=== PATIENT | male | born 1965 | race Hispanic/Latino ===

== ENCOUNTER 2023-02-26 19:10 | Inpatient (IN) | payer OTHER ==
[2023-02-26 19:53] LABS: Absolute Lymphocytes (CBC) 1.4 K/uL (0.7-4.9); Hematocrit 45.5 % (39.6-49.0); Lymphocytes % 8.2 % (15.3-44.8); MCV 86.2 fL (80-100); MPV 9.2 fL (7.6-11.3); Platelets 189 thou/uL (152-406); RBC Red Blood Cell Count 5.28 M/uL (4.33-5.43)
[2023-02-26 20:16] LABS: Albumin 3.8 g/dL (3.4-5.0); Bilirubin Direct 0.3 mg/dL (0-0.2); Bilirubin Indirect, Calculated 1.2 mg/dL (0.2-0.8); Bilirubin Total 1.5 mg/dL (0.2-1.0); Magnesium 1.7 mg/dL (1.6-2.4); Potassium 3.8 mEq/L (3.5-5.1); Troponin High Sensitivity 31.8 pg/mL (<58.9)
[2023-02-26 20:18] LABS: Protime INR 1.25
[2023-02-26] MEDS ORDERED: NA CHLORIDE 0.9% 100 ML ONE (20:47)
[2023-02-26] MEDS ORDERED: CEFEPIME 1 GM/VIAL ONE (20:47)
--- NOTE | 2023-02-26 20:59 | RAD REPORT ---
EXAM DESCRIPTION: RADChest Single View02/26/2023 7:56 pm CLINICAL HISTORY: DYSPNEA COMPARISON: Chest Single View dated 01/22/2023; Chest Single View dated 08/21/2022 TECHNIQUE: Portable AP view of the chest. FINDINGS: The lungs are clear. Improving central interstitial prominence. No pneumothorax or effusi on. Stable cardiomegaly. Mediastinal contours are unchanged, with sequelae of prior CABG again seen. IMPRESSION: No acute pulmonary process. Improving central interstitial prominence. Stable cardiomeg cipriano.
--- NOTE | 2023-02-26 21:27 | P.HP ---
Certification for Inpatient Patient admitted to: Inpatient With expected LOS: <2 Midnights Patient will require the following post-hospital care: None Practitioner: I am a practitioner with admitting privileges, knowledge of patient current condition, hospital course, and medical plan of care. Services: Services provided to patient in accordance with Admission requirements found in Title 42 Section 412.3 of the Code of Federal Regulations Patient History Date of Service: 02/27/23 Reason for admission: Shortness of breath History of Present Illness: 57-year-old male with a past medical history of hypertension, myocardial infarction, CAD with PCI, medication noncompliance. Presents to the emergency room with shortness of breath. He reports shortness of breath began this morning. He reports shortness of breath is worse with exertion. His shortness of breath is worse when lying flat. He reports palpitations. He denies abdominal pain, chest pain, nausea vomiting diarrhea. He reports COVID 3 weeks ago. He reports cardiac medications he took for 3 weeks and stopped. He denies following up with cardiology or primary care for medications refill. Laboratory evaluation leukocytosis 17.50, early left shift 83.7, acute on chronic kidney injury BUN 19 creatinine 1.42 estimated GFR 58 blood glucose 189 lactic normal at 1.9 elevated alk phos 155, troponin normal at 31.8, BNP elevated at 5325, chest x-ray IMPRESSION: No acute pulmonary process. Improving central interstitial prominence. Stable cardiomegaly. EKG sinus tachycardia heart rate 127, QRS axis normal, IA interval normal, QT interval normal. No ST change. SARS, COVID, flu negative. Allergies No Known Allergies Allergy (Unverified 08/21/22 15:57) Home Medications: Aspirin Chewable [Aspirin Chewable*] 1 tab PO DAILY 01/23/23 Carvedilol [Coreg] 12.5 mg PO BID 01/23/23 Clopidogrel Bisulfate [Plavix*] 1 tab PO DAILY 01/23/23 Tamsulosin [Flomax*] 0.4 mg PO DAILY 01/23/23 lisinopriL [Lisinopril] 20 mg PO DAILY 01/23/23 Furosemide 20 mg PO DAILY #10 tab 01/25/23 levoFLOXacin [Levofloxacin] 750 mg PO DAILY 12 Days #12 tab 01/25/23 - Past Medical/Surgical History -: HI -: HTN -: CAD -: Cardiac Stent placement - Social History Smoking Status: Never smoker Alcohol use: Yes CD- Drugs: No Caffeine use: Yes Review of Systems 10-point ROS is otherwise unremarkable Physical Examination - Physical Exam General: Alert, In no apparent distress, Oriented x3, Mild distress HEENT: Atraumatic, Normocephalic Neck: Supple, 2+ carotid pulse no bruit Respiratory: Crackles/rales, Other (Tachypnea on BiPAP,) Cardiovascular: No edema, Normal pulses Capillary refill: <2 Seconds Gastrointestinal: Normal bowel sounds, Soft and benign Musculoskeletal: No clubbing, No swelling Integumentary: No rashes, No breakdown Neurological: Normal speech, Normal strength at 5/5 x4 extr - Studies Laboratory Data (last 24 hrs) 02/26/23 02/26/23 02/26/23 19:57 19:40 19:40 WBC RBC Hgb Hct MCV MCH MCHC RDW Plt Count MPV Neutrophils % Lymphocytes % Monocytes % Eosinophils % Basophils % Absolute Neutrophils Absolute Lymphocytes Absolute Monocytes Absolute Eosinophils Absolute Basophils PT 13.8 H INR 1.25 APTT 33.2 D-Dimer Cancelled Sodium Potassium Chloride Carbon Dioxide Anion Gap BUN Creatinine Est GFR (CKD-EPI) Glucose POC Glucose 175 H Lactic Acid 1.9 Calcium Magnesium Total Bilirubin Direct Bilirubin Indirect Bilirubin AST ALT Alkaline Phosphatase Creatine Kinase Troponin I High Sens NT-Pro-B Natriuret Pep Serum Total Protein Albumin Globulin Albumin/Globulin Ratio SARS-CoV-2 Rap RNA(RT-PCR) 02/26/23 02/26/23 02/26/23 19:40 19:40 19:02 WBC 17.50 H RBC 5.28 Hgb 14.9 Hct 45.5 MCV 86.2 MCH 28.3 MCHC 32.9 RDW 16.4 H Plt Count 189 MPV 9.2 Neutrophils % 83.7 H Lymphocytes % 8.2 L Monocytes % 6.7 Eosinophils % 0.8 Basophils % 0.6 Absolute Neutrophils 14.7 H Absolute Lymphocytes 1.4 Absolute Monocytes 1.2 Absolute Eosinophils 0.1 Absolute Basophils 0.1 PT INR APTT D-Dimer Sodium 137 Potassium 3.8 Chloride 108 H Carbon Dioxide 22 Anion Gap 10.8 BUN 19 H Creatinine 1.42 H Est GFR (CKD-EPI) 58 L Glucose 189 H POC Glucose Lactic Acid Calcium 8.7 Magnesium 1.7 Total Bilirubin 1.5 H Direct Bilirubin 0.3 H Indirect Bilirubin 1.2 H AST 13 L ALT 22 Alkaline Phosphatase 155 H Creatine Kinase 66 Troponin I High Sens 31.8 NT-Pro-B Natriuret Pep 5325 H Serum Total Protein 8.0 Albumin 3.8 Globulin 4.2 H Albumin/Globulin Ratio 0.9 L SARS-CoV-2 Rap RNA(RT-PCR) Negative Microbiology Data (last 24 hrs): 02/26/23 19:02 Nasopharnyx Influenza Type A Antigen Screen - Final 02/26/23 19:02 Nasopharnyx Influenza Type B Antigen Screen - Final Assessment and Plan - Plan Assessment plan Acute on chronic heart failure unknown baseline Acute hypoxic respiratory failure secondary to decompensated heart failure Medication noncompliance History of HI, CAD with PCI Elevated BNP Acute on chronic kidney injury unknown baseline Leukocytosis Uncontrolled hypertension Tobacco use Assessment plan acute on chronic heart failure unknown baseline Acute hypoxic respiratory failure secondary to decompensated heart failure History of HI, CAD with PCI Elevated BNP Medication noncompliance Uncontrolled hypertension BiPAP Cardiology consult, trend troponins, trend BNP, Lasix, troponin normal at 31.8, BNP elevated at 5325, EKG sinus tachycardia heart rate 127, QRS axis normal, IA interval normal, QT interval normal. No ST change. SARS, COVID, flu negative. Acute on chronic kidney injury unknown baseline Trend kidney function, avoid nephrotoxic medications .acute on chronic kidney injury BUN 19 creatinine 1.42 estimated GFR 58 Leukocytosis leukocytosis 17.50, early left shift 83.7, actic normal at 1.9 Diet n.p.o Full code DVT heparin. Discharge Plan: Home Plan to discharge in: 48 Hours - Advance Directives Does patient have a Living Will: No Does patient have a Durable POA for Healthcare: No - Code Status/Comfort Care Code Status: Full Code Physician Review: Patient Assessed, Agree with Above Assessment and Plan Critical Care: No Time Spent Managing Pts Care (In Minutes): 50
--- NOTE | 2023-02-26 21:28 | RAD REPORT ---
EXAM DESCRIPTION: CT - Chest For Pe Angio - 02/26/2023 8:53 pm CLINICAL HISTORY: DYSPNEA COMPARISON: Chest For Pe Angio dated 01/22/2023 TECHNIQUE: Thin axial CT images of the chest were obtained following administration of 100 mL Isovue 370 IV contrast. Multiplanar reconstructions, and maximum intensity projection reconstructions were generated and reviewed. Exam utilizes a protocol for optimal evaluation of pulmonary arterial tree. All CT scans are performed using dose optimization technique as appropriate and may include automated exposure control or mA/KV adjustment according to patient size. FINDINGS: Pulmonary arteries are normal. No emboli or other suspicious finding. No acute or signific ant aorta findings. Small bilateral layering effusions, larger on the right. Central predominant ground-glass opacities a nd interlobular septal thickening. No pneumothorax. Sequelae of median sternotomy and CABG. No abnormal mediastinal or hilar masses or lymphadenopathy seen. No chest wall mass or abnormal axill iary lymphadenopathy. IMPRESSION: No evidence of acute central pulmonary emboli. Findings suggestive of pulmonary edema with small bilateral layering effusions.
--- NOTE | 2023-02-26 21:44 | ER ---
Nurse's Notes [facility] Name: Rizwan Betancur Age: 57 yrs Sex: Male : 1965 Arrival Date: 02/26/2023 Time: 19:10 Bed 8 Private MD: Diagnosis: Dyspnea, pulmonary edema, low-grade fever, CHF Presentation: 02/26 19:25 Chief complaint: Patient states: shortness of breath that started today. at time of as6 triage pt is diaphoretic, labored breathing. Coronavirus screen: At this time, the client does not indicate any symptoms associated with coronavirus-19. Ebola Screen: No symptoms or risks identified at this time. Initial Sepsis Screen: Does the patient meet any 2 criteria? RR > 20 per min. Temp <36.0*C (96.8*F)) or > 38.3*C (100.9*F). HR > 90 bpm. Yes Does the patient have a suspected source of infection? Yes: Productive cough/pneumonia If YES to both, name of provider notified: Connor Juarez MD. Risk Assessment: Do you want to hurt yourself or someone else? Patient reports no desire to harm self or others. Onset of symptoms was February 26, 2023. 19:25 Acuity: CRYSTAL 2 as6 19:25 Method Of Arrival: Wheelchair as6 Triage Assessment: 23:20 General: Appears uncomfortable, Behavior is cooperative. Respiratory: Onset: The ha1 symptoms/episode began/occurred gradually, the patient has moderate shortness of breath. Historical: - PMHx: 19:24 Hypertensive disorder; Myocardial infarction; as6 - PSHx: 19:24 heart stent; as6 - Immunization history:: Adult Immunizations unknown. - Family history:: not pertinent. - Social history:: Smoking status: unknown. - Hospitalizations: : No recent hospitalization is reported. Screenin:51 Abuse screen: Denies threats or abuse. Denies injuries from another. Nutritional ha1 screening: No deficits noted. Tuberculosis screening: No symptoms or risk factors identified. Assessment: 19:21 Pain: Denies pain. Cardiovascular: Capillary refill < 3 seconds Rhythm is sinus ha1 tachycardia. Respiratory: Airway is patent Respiratory effort is labored, with retractions, Respiratory pattern is tachypnea Breath sounds with wheezes bilaterally. Respiratory: Reports shortness of breath at rest labored breathing Patient placed on BiPAP: Inspiratory Pressure: 35 Respiratory Rate: 25. GI: No signs and/or symptoms were reported involving the gastrointestinal system. : No signs and/or symptoms were reported regarding the genitourinary system. Musculoskeletal: Circulation, motion, and sensation intact. Range of motion: intact in all extremities. 20:20 Reassessment: Patient and/or family updated on plan of care and expected duration. Pain ha1 level reassessed. Patient is alert, oriented x 3, equal unlabored respirations, skin warm/dry/pink. Patient denies pain at this time. Patient states symptoms have improved. 21:20 Reassessment: Patient and/or family updated on plan of care and expected duration. Pain ha1 level reassessed. Patient is alert, oriented x 3, equal unlabored respirations, skin warm/dry/pink. Patient denies pain at this time. Patient states feeling better. Patient states symptoms have improved. 22:20 Reassessment: Patient and/or family updated on plan of care and expected duration. Pain ha1 level reassessed. Patient is alert, oriented x 3, equal unlabored respirations, skin warm/dry/pink. 23:20 Reassessment: Patient and/or family updated on plan of care and expected duration. Pain ha1 level reassessed. Patient is alert, oriented x 3, equal unlabored respirations, skin warm/dry/pink. Patient denies pain at this time. Patient states feeling better. Patient states symptoms have improved. Vital Signs: 19:24 Pulse 128; Resp 45 S; Temp 100.5(A); Pulse Ox 79% on R/A; Weight 80.74 kg (M); as6 19:49 BP 163 / 93; Pulse 113; Resp 25; Pulse Ox 99% on 35 lpm BiPAP; ha1 20:00 BP 143 / 96; Pulse 105; Resp 25 S; Pulse Ox 100% on 35 lpm BiPAP; ha1 21:00 BP 132 / 95; Pulse 94; Resp 23 S; Pulse Ox 100% on 35 lpm BiPAP; ha1 22:00 BP 136 / 82; Pulse 93; Resp 23 S; Temp 98.2; Pulse Ox 100% on 35 lpm BiPAP; ha1 ED Course: 19:13 Patient arrived in ED. jj6 19:15 Connor Juarez MD is Attending Physician. rn 19:21 Patient has correct armband on for positive identification. Placed in gown. Bed in low ha1 position. Call light in reach. Side rails up X 1. 19:24 Arm band placed on. as6 19:25 Inserted saline lock: 20 gauge in right antecubital area, using aseptic technique. ha1 Blood collected. 19:28 Triage completed. as6 19:37 Flu Sent. ha1 19:37 SARS-COV-2 RT PCR Sent. ha1 19:58 XRAY CXR (1 view) In Process Unspecified. EDMS 20:35 Attending Physician role handed off by Connor Juarez MD sp3 20:35 Theo Durán MD is Attending Physician. sp3 20:55 CT Chest For PE Angio In Process Unspecified. EDMS 21:30 Judi Fiore RN is Primary Nurse. ha1 21:44 Ash Barron MD is Hospitalizing Provider. sp3 02/27 01:13 No provider procedures requiring assistance completed. Patient admitted, IV remains in ha1 place. Administered Medications: 02/26 21:15 Drug: Cefepime IVPB 1 grams IVPB at 200 ml/hr once over 30 mins; (mix in NS 100 mL) ha1 Route: IVPB; Rate: 200 ml/hr; Infused Over: 30 mins; Site: right antecubital; 23:00 Follow up: Response: No adverse reaction; IV Status: Completed infusion; IV Intake: ha1 100ml 22:25 Drug: Furosemide IVP 40 mg IVP once; give over 2 minutes Route: IVP; Site: right ha1 antecubital; 02/27 01:31 Follow up: Response: No adverse reaction ha1 Medication: 01:14 VIS not applicable for this client. ha1 Intake: 02/26 23:00 IV: 100ml; Total: 100ml. ha1 Outcome: 21:44 Decision to Hospitalize by Provider. sp3 02/27 01:13 Admitted to ER Hold. Please see [facility] for further documentation. ha1 Condition: stable Discharge instructions given to patient, Instructed on the need for admit, Demonstrated understanding of instructions, 09:01 Patient left the ED. ld1 Signatures: Dispatcher [employer] EDMS Connor Juarez MD MD rn Sims, Lauren RN RN ld1 Theo Durán MD MD sp3 Chandni [id number] Elmer Lucero, RN RN as6 Judi Fiore, RN RN ha1
--- NOTE | 2023-02-26 21:44 | EDPHYS ---
Physician Documentation [facility] Name: Rizwan Betancur Age: 57 yrs Sex: Male : 1965 Arrival Date: 02/26/2023 Time: 19:10 Bed 8 Private MD: ED Physician Theo Durán HPI: 02/26 19:32 This 57 yrs old Male presents to ER via Wheelchair with complaints of rn Breathing Difficulty. 19:32 The patient has shortness of breath at rest, with light activity. Onset: The rn symptoms/episode began/occurred this morning. Duration: The symptoms are continuous. The patient's shortness of breath is aggravated by light activity, talking, walking, is alleviated by nothing. Severity of symptoms: At their worst the symptoms were severe in the emergency department the symptoms are unchanged. The patient has experienced similar episodes in the past. The patient has not recently seen a physician. Patient reports this morning began with shortness of breath, cough, dyspnea with exertion. No fever. No chest pain. Reports has "heart problem". No trauma.. Historical: - PMHx: 19:24 Hypertensive disorder; Myocardial infarction; as6 - PSHx: 19:24 heart stent; as6 - Immunization history:: Adult Immunizations unknown. - Family history:: not pertinent. - Social history:: Smoking status: unknown. - Hospitalizations: : No recent hospitalization is reported. ROS: 19:32 Constitutional: Negative for fever, chills, and weight loss, Eyes: Negative for injury, rn pain, redness, and discharge, Cardiovascular: Positive for palpitations, negative for chest pain Respiratory: Positive for shortness of breath and cough Abdomen/GI: Negative for abdominal pain, nausea, vomiting, diarrhea, and constipation, MS/Extremity: Negative for injury and deformity, Skin: Negative for injury, rash, and discoloration, Neuro: Negative for headache, weakness, numbness, tingling, and seizure, Exam: 19:32 Constitutional: This is a well developed, well nourished patient who is awake, alert, rn moderate respiratory distress, speaking in 2 word sentences Head/Face: Normocephalic, atraumatic. ENT: No stridor Cardiovascular: Tachycardic, regular Respiratory: Coarse bilateral breath sounds with crackles Abdomen/GI: Soft, nontender MS/ Extremity: Pulses equal, no cyanosis. Neurovascular intact. Full, normal range of motion. Equal circumference. Neuro: Awake and alert, GCS 15 19:34 ECG was reviewed by the Attending Physician. rn Vital Signs: 19:24 Pulse 128; Resp 45 S; Temp 100.5(A); Pulse Ox 79% on R/A; Weight 80.74 kg (M); as6 19:49 BP 163 / 93; Pulse 113; Resp 25; Pulse Ox 99% on 35 lpm BiPAP; ha1 20:00 BP 143 / 96; Pulse 105; Resp 25 S; Pulse Ox 100% on 35 lpm BiPAP; ha1 21:00 BP 132 / 95; Pulse 94; Resp 23 S; Pulse Ox 100% on 35 lpm BiPAP; ha1 22:00 BP 136 / 82; Pulse 93; Resp 23 S; Temp 98.2; Pulse Ox 100% on 35 lpm BiPAP; ha1 MDM: 19:15 Patient medically screened. rn 20:18 ED course: Patient with marked improvement after put on BiPAP.. rn 02/26 19:16 Order name: BMP; Complete Time: 20:18 rn 02/26 19:16 Order name: Blood Culture Adult (2) rn 02/26 19:16 Order name: CBC with Diff; Complete Time: 20:18 rn 02/26 19:16 Order name: CPK; Complete Time: 20:18 rn 02/26 19:16 Order name: Hepatic Function; Complete Time: 20:18 rn 02/26 19:16 Order name: Magnesium; Complete Time: 20:18 rn 02/26 19:16 Order name: NT PRO-BNP; Complete Time: 20:18 rn 02/26 19:16 Order name: PT-INR; Complete Time: 20:20 rn 02/26 19:16 Order name: Ptt, Activated; Complete Time: 20:20 rn 02/26 19:16 Order name: Troponin HS; Complete Time: 20:18 rn 02/26 19:21 Order name: Lactate w/ 2H reflex if indic.; Complete Time: 20:18 rn 02/26 19:22 Order name: SARS-COV-2 RT PCR; Complete Time: 20:18 rn 02/26 19:22 Order name: Flu; Complete Time: 20:18 rn 02/26 20:10 Order name: Glucose, Ancillary Testing; Complete Time: 20:18 EDMS 02/27 01:15 Order name: Troponin High Sensitivity; Complete Time: 04:32 EDMS 02/27 04:17 Order name: CBC with Automated Diff; Complete Time: 04:32 EDMS 02/27 04:31 Order name: Comprehensive Metabolic Panel; Complete Time: 04:32 EDMS 02/27 04:31 Order name: NT PRO-BNP; Complete Time: 04:32 EDMS 02/27 04:31 Order name: Magnesium; Complete Time: 04:32 EDMS 02/27 07:54 Order name: Troponin High Sensitivity EDCA 02/26 19:16 Order name: XRAY CXR (1 view); Complete Time: 21:15 rn 02/26 19:21 Order name: BIPAP rn 02/26 19:22 Order name: CT Chest For PE Angio; Complete Time: 04:32 rn 02/26 19:16 Order name: EKG; Complete Time: 19:16 rn 02/26 21:19 Order name: CONS Physician Consult EDCA 02/26 19:16 Order name: Cardiac monitoring; Complete Time: 19:23 rn 02/26 19:16 Order name: EKG - Nurse/Tech; Complete Time: 19:22 rn 02/26 19:16 Order name: IV Saline Lock; Complete Time: 19:37 rn 02/26 19:16 Order name: Labs collected and sent; Complete Time: 19:37 rn 02/26 19:16 Order name: O2 Per Protocol; Complete Time: 19:24 rn 02/26 19:16 Order name: O2 Sat Monitoring; Complete Time: 19:24 rn 02/26 19:29 Order name: Accucheck; Complete Time: 20:17 rn 02/26 19:29 Order name: IV Saline Lock - Large Bore; Complete Time: 19:38 rn 02/26 19:29 Order name: Vital Signs; Complete Time: 19:54 rn EC:34 Rate is 127 beats/min. Rhythm is regular. QRS [place] is Normal. AR interval is normal. rn QRS interval is normal. QT interval is normal. No Q waves. T waves are Normal. No ST changes noted. Clinical impression: Sinus tachycardia. Interpreted by me. Reviewed by me. Administered Medications: 21:15 Drug: Cefepime IVPB 1 grams IVPB at 200 ml/hr once over 30 mins; (mix in NS 100 mL) ha1 Route: IVPB; Rate: 200 ml/hr; Infused Over: 30 mins; Site: right antecubital; 23:00 Follow up: Response: No adverse reaction; IV Status: Completed infusion; IV Intake: ha1 100ml 22:25 Drug: Furosemide IVP 40 mg IVP once; give over 2 minutes Route: IVP; Site: right ha1 antecubital; 02/27 01:31 Follow up: Response: No adverse reaction ha1 Disposition Summary: 02/26/23 21:44 Hospitalization Ordered Notes: Hospitalization Status: Inpatient Admission sp3 Provider: Ash Barron sp3 Condition: Stable sp3 Problem: an acute exacerbation sp3 Symptoms: have worsened sp3 Bed/Room Type: Standard sp3 Location: Telemetry/MedSurg (Inpatient)(02/27/23 07:43) bd Room Assignment: 421(02/27/23 07:43) bd Diagnosis - Dyspnea, pulmonary edema, low-grade fever, CHF sp3 Forms: - Medication Reconciliation Form sp3 - SBAR form sp3 - Leadership Thank You Letter sp3 Signatures: Dispatcher [employer] EDMS Kelsea Aj bd Connor Juarez MD MD rn Garcia, Cindy, RN RN cg Patel, Setul, MD MD sp3 Elmer Lucero RN RN as6 Judi Fiore RN RN ha1 Alondra Campos, ACCOUNTING ASSISTANT ACCOUNTING ASSISTANT cm12 Corrections: (The following items were deleted from the chart) 02/26 19:41 19:16 D-DIMER+COAG.LAB.BRZ ordered. EDMS EDMS 19:41 19:16 PROTIME (+INR)+COAG.LAB.BRZ ordered. EDMS EDMS 19:41 19:16 PTT, ACTIVATED+COAG.LAB.BRZ ordered. EDMS EDMS 22:16 21:44 Telemetry/MedSurg (Inpatient) sp3 cg 22:16 21:44 sp3 cg 02/27 07:43 02/26 22:16 BR ER HOLD cg bd 02/27 07:43 02/26 22:16 ERHOLD- cg bd
[2023-02-26] MEDS ORDERED: FUROSEMIDE 40 MG/4 ML VIAL ONE (22:32)
[2023-02-27] MEDS ORDERED: ONDANSETRON 4 MG/2 ML VIAL IV PRN (00:18)
[2023-02-27 04:02] LABS: Absolute Lymphocytes (CBC) 1.2 K/uL (0.7-4.9); Hematocrit 42.3 % (39.6-49.0); Lymphocytes % 10.2 % (15.3-44.8); MCV 85.6 fL (80-100); MPV 9.2 fL (7.6-11.3); Platelets 160 thou/uL (152-406); RBC Red Blood Cell Count 4.94 M/uL (4.33-5.43)
[2023-02-27 04:31] LABS: Albumin 3.5 g/dL (3.4-5.0); Bilirubin Total 1.7 mg/dL (0.2-1.0); Magnesium 1.7 mg/dL (1.6-2.4); Potassium 3.5 mEq/L (3.5-5.1); Protein, Total 7.4 g/dL (6.4-8.2)
[2023-02-27] MEDS: CLOPIDOGREL 75 MG TABLET PO SCH (07:53)
[2023-02-27] MEDS: ASPIRIN 81 MG CHEWABLE TABLET PO SCH (07:53)
[2023-02-27] MEDS: carvediloL 12.5 MG TAB PO SCH ×2 (07:53→17:43)
[2023-02-27] MEDS ORDERED: carvediloL 6.25 MG TAB ONE (07:57)
[2023-02-27] MEDS ORDERED: ASPIRIN 81 MG CHEWABLE TABLET ONE (07:57)
[2023-02-27] MEDS ORDERED: NA CHLORIDE 0.9% 100 ML ONE (07:57)
[2023-02-27] MEDS ORDERED: CLOPIDOGREL 75 MG TABLET ONE (07:57)
[2023-02-27] MEDS ORDERED: CEFEPIME 1 GM/VIAL ONE (07:58)
[2023-02-27] MEDS ORDERED: INFLUENZA VACCINE (for 6+ mo) 0.5 ML DOSE IMVAC ONE (08:00)
[2023-02-27] MEDS ORDERED: PNEUMOCOCCAL VACCINE 0.5 ML IMVAC ONE (08:00)
[2023-02-27] MEDS ORDERED: CEFEPIME 1 GM in NA CHLORIDE 0.9% 100 ML IV SCH (09:00)
[2023-02-27] MEDS ORDERED: carvediloL 12.5 MG TAB PO SCH ×2 (09:00→17:00)
[2023-02-27 09:12] VITALS: BMI 28.5
[2023-02-27] MEDS ORDERED: POTASSIUM CL SA 10 MEQ TAB PO ONE (09:18)
[2023-02-27] MEDS ORDERED: MAGNESIUM SULFATE 1 gm IVPB 1 GM/100 ML BAG IV ONE (09:18)
--- NOTE | 2023-02-27 12:07 | P.PN ---
Subjective Date of Service: 02/27/23 Chief Complaint: Shortness of breath Subjective: Improving (Patient has done significantly well treated with Lasix apparently he has a history of congestive heart failure chronic renal failure this post CABG about 4 months ago and has not been taking any medications complaining of shortness of breath orthopnea) Review of Systems General: Weakness Respiratory: Shortness of Breath Physical Examination - Vital Signs Temperature: 97.6 F Blood Pressure: 115/76 Pulse: 67 Respirations: 16 Pulse Ox (%): 98 - Physical Exam General: Alert, Oriented x3 HEENT: Atraumatic Neck: Supple Respiratory: Clear to auscultation bilaterally Cardiovascular: No edema - Studies Laboratory Data (last 24 hrs) 02/26/23 02/26/23 02/26/23 19:40 19:40 19:40 WBC 17.50 H Hgb 14.9 Hct 45.5 Plt Count 189 PT 13.8 H INR 1.25 APTT 33.2 Sodium 137 Potassium 3.8 BUN 19 H Creatinine 1.42 H Glucose 189 H Magnesium 1.7 Total Bilirubin 1.5 H AST 13 L ALT 22 Alkaline Phosphatase 155 H Microbiology Data (last 24 hrs): 02/26/23 19:02 Nasopharnyx Influenza Type A Antigen Screen - Final 02/26/23 19:02 Nasopharnyx Influenza Type B Antigen Screen - Final Assessment And Plan - Current Problems (Diagnosis) (1) Congestive heart failure Current Visit: Yes Status: Acute Plan: Patient is 57 years of age admitted with worsening dyspnea is a history of congestive heart failure s/p CABG 4 months been taking any medications at home is much better we will reduce the dose of Lasix resume his lisinopril got chronic renal failure continue with carvedilol ordered an echo DC antibiotics if chest x-ray is clear chest x-ray shows cardiomegaly vital signs are all stable significant negative fluid balance plan for discharge tomorrow ambulate echocardiogram pending Qualifiers: Heart failure chronicity: unspecified Physician Review: Patient Assessed, Agree with Above Assessment and Plan
--- NOTE | 2023-02-27 12:51 | EKG ---
Test Date: 2023-02-26 Test Time: 19:19:29 Plastic Technician: RV MEASUREMENT RESULTS: Intervals: Rate: 127 RI: 146 QRSD: 84 QT: 316 QTc: 459 [place]: P: 56 RI: 146 QRS: 60 T: 73 INTERPRETIVE STATEMENTS: Sinus tachycardia Biatrial enlargement T wave abnormality, consider lateral ischemia Abnormal ECG Compared to ECG 01/22/2023 11:16:03 T-wave abnormality now present Possible ischemia now present Sinus rhythm no longer present Myocardial infarct finding no longer present Electronically Signed On 02-27-23 12:48:28 CDT by Florian Mosley
--- NOTE | 2023-02-27 16:54 | CON ---
Date of Consultation: 02/27/2023 Reason For Consultation: CHF. History Of Present Illness: A 57-year-old male with history of coronary artery disease, congestive h eart failure, hypertension, status post bypass in the past and PCIs, presented with shortness of jayna th, orthopnea and lower extremity edema. After diuresis, he is feeling much better, now speaking ful l sentences. No chest pain. Past Medical History: Coronary artery disease, hypertension. Past Surgical History: Coronary artery bypass surgery and multiple cardiac stents. Family History: No premature coronary artery disease or cancer. Medications: Refer to reconciliation sheet for detailed list. Allergies: NO KNOWN DRUG ALLERGIES. Social History: Does not smoke or drink. Does not use any drugs. Review of Systems: All systems reviewed and they were negative except what mentioned in HPI. Physical Examination: Vital Signs: Reviewed. Head and Neck: Pupils are equal, reactive to light. Intact eye movements. No JVD. No cervical lym phadenopathy. Neck is supple. Thyroid is not enlarged. Lungs: Clear to auscultation bilaterally. No rhonchi, wheezing, or crackles. No accessory muscle u se. Heart: Regular rate and rhythm. No extra sounds. Abdomen: Soft, nontender. Bowel sounds positive. No organomegaly. No masses or hernia. No rigidi ty or rebound. Extremities: No edema, clubbing, or cyanosis. Intact pulses. Skin: No rash. Neurologic: Alert, awake, oriented x3. No acute focal deficits appreciated. Investigations: BUN 21, creatinine is 1.48. Cardiac enzymes are negative. NT-proBNP was 5841 and C TA of the chest showed no PE and has a pulmonary edema. Assessment And Recommendations: 1.Acute on chronic congestive heart failure exacerbation, unknown ejection fraction. Obtain an echo . Put him on Lasix. He diuresed very well on 1 dose of Lasix IV. Can switch him to oral 40 mg chelsea y and plan to adjust as he responds. 2.Coronary artery disease. No chest pain. Cardiac enzymes are negative. 3.Hypertension. Blood pressure is controlled. SR/MODL Voice ID: [id number] Report ID: [id number]
[2023-02-28] MEDS ORDERED: FUROSEMIDE 40 MG/4 ML VIAL IV SCH (01:00)
[2023-02-28 03:13] LABS: Absolute Lymphocytes (CBC) 1.5 K/uL (0.7-4.9); Hematocrit 43.2 % (39.6-49.0); Lymphocytes % 21.4 % (15.3-44.8); MCV 85.8 fL (80-100); MPV 9.2 fL (7.6-11.3); Platelets 173 thou/uL (152-406); RBC Red Blood Cell Count 5.03 M/uL (4.33-5.43)
[2023-02-28 03:44] LABS: Albumin 2.9 g/dL (3.4-5.0); Bilirubin Total 0.8 mg/dL (0.2-1.0); Magnesium 2.1 mg/dL (1.6-2.4); Potassium 3.9 mEq/L (3.5-5.1); Protein, Total 6.7 g/dL (6.4-8.2)
[2023-02-28] MEDS: carvediloL 12.5 MG TAB PO SCH (08:00)
[2023-02-28] MEDS: CLOPIDOGREL 75 MG TABLET PO SCH (08:11)
[2023-02-28] MEDS: ASPIRIN 81 MG CHEWABLE TABLET PO SCH (08:12)
[2023-02-28 08:14] VITALS: BP 108/72
[2023-02-28] MEDS ORDERED: lisinopriL 20 MG TAB PO SCH (09:00)
[2023-02-28] MEDS ORDERED: FUROSEMIDE 20 MG TABLET PO SCH (09:00)
[2023-02-28 09:14] VITALS: O2SAT 98
[2023-02-28 09:53] VITALS: TEMP 97.9
--- NOTE | 2023-02-28 11:00 | P.DS ---
Admission Date: 02/26/23 Discharge Date: 02/28/23 Disposition: ROUTINE DISCHARGE Discharge Condition: FAIR Reason for Admission: Shortness of breath - Problems (1) Congestive heart failure Current Visit: Yes Status: Acute Qualifiers: Heart failure chronicity: unspecified Brief History of Present Illness: Patient is 57 years of age with a history of congestive heart failure status post CABG was admitted with worsening dyspnea compliant with medications Hospital Course: He was admitted to the hospital treated with diuretics. Well previous echo in December showed mild left ventricular dysfunction he just recently had a CABG about 4 months ago and has mild renal insufficiency was diuresed at the time of discharge alert oriented responsive cooperative vital signs all stable chest clear to be discharged follow-up with myself or primary care doctor in about 2 weeks Vital Signs/Physical Exam: Temp Pulse Resp BP Pulse Ox 97.9 F 69 18 108/72 97 02/28/23 08:00 02/28/23 08:11 02/28/23 08:00 02/28/23 08:11 02/28/23 08:00 Laboratory Data at Discharge: WBC 7.30 thou/uL (4.3-10.9) 02/28/23 01:58 Hgb 14.2 g/dL (13.6-17.9) 02/28/23 01:58 Hct 43.2 % (39.6-49.0) 02/28/23 01:58 Plt Count 173 thou/uL (152-406) 02/28/23 01:58 PT 13.8 SECONDS (9.5-12.5) H 02/26/23 19:40 INR 1.25 02/26/23 19:40 APTT 33.2 SECONDS (24.3-36.9) 02/26/23 19:40 Sodium 137 mEq/L (136-145) 02/28/23 01:58 Potassium 3.9 mEq/L (3.5-5.1) 02/28/23 01:58 BUN 27 mg/dL (7-18) H 02/28/23 01:58 Creatinine 1.33 mg/dL (0.70-1.30) H 02/28/23 01:58 Glucose 131 mg/dL (74-106) H 02/28/23 01:58 Magnesium 2.1 mg/dL (1.6-2.4) 02/28/23 01:58 Total Bilirubin 0.8 mg/dL (0.2-1.0) 02/28/23 01:58 AST 11 U/L (15-37) L 02/28/23 01:58 ALT 18 U/L (16-61) 02/28/23 01:58 Alkaline Phosphatase 117 U/L (45-117) 02/28/23 01:58 Home Medications: Aspirin Chewable [Aspirin Chewable*] 1 tab PO DAILY 01/23/23 Carvedilol [Coreg] 12.5 mg PO BID 30 Days #60 tab 02/28/23 Clopidogrel Bisulfate [Plavix*] 1 tab PO DAILY 90 Days #90 tab 02/28/23 Furosemide [Lasix] 20 mg PO DAILY 90 Days #90 tab 02/28/23 Tamsulosin [Flomax*] 0.4 mg PO DAILY 90 Days #90 cap 02/28/23 lisinopriL [Lisinopril] 20 mg PO DAILY 90 Days #90 tab 02/28/23 New Medications: Carvedilol [Coreg] 12.5 mg PO BID 30 Days #60 tab Tamsulosin [Flomax*] 0.4 mg PO DAILY 90 Days #90 cap Furosemide [Lasix] 20 mg PO DAILY 90 Days #90 tab lisinopriL [Lisinopril] 20 mg PO DAILY 90 Days #90 tab Clopidogrel Bisulfate [Plavix*] 1 tab PO DAILY 90 Days #90 tab Diet: Low sodium Activity: Ad eric Followup: Florian Mosley MD [ACTIVE - CAN ADMIT] - 1-2 Weeks (Call for appointment.)
--- NOTE | 2023-02-28 19:01 | PN ---
Date of Progress Note: 02/28/2023 Subjective: Seen by bedside. Doing very well. No shortness of breath. No orthopnea. No nausea, v omiting, diarrhea. No dysuria, polyuria, or urinary urgency. All other systems reviewed and they we re negative. Physical Examination: Vital Signs: Reviewed. Head and Neck: Pupils are equal, reactive to light. Intact eye movements. No JVD. No cervical lym phadenopathy. Neck is supple. Thyroid is not enlarged. Lungs: Clear to auscultation bilaterally. No rhonchi, wheezing, or crackles. No accessory muscle u se. Heart: Regular rate and rhythm. No extra sounds. Abdomen: Soft, nontender. Bowel sounds positive. No organomegaly. No masses or hernia. No rigidi ty or rebound. Extremities: No edema, clubbing, or cyanosis. Intact pulses. Skin: No rash. Neurologic: Alert, awake, oriented x3. No acute focal deficits appreciated. Investigations: BUN is 27, creatinine 1.33. Cardiac enzymes are negative. Assessment And Recommendations: 1.Acute on chronic systolic heart failure exacerbation, improved. Switch to oral Lasix and can be d ischarged and follow up with me in the office in 1 week. 2.Coronary artery disease, status post coronary artery bypass graft. No chest pain. Cardiac enzyme s are negative. Continue home medications. 3.Dyslipidemia. Recommend Lipitor 40 mg q.h.s. 4.Hypertension. Blood pressure is controlled. SR/MODL Voice ID: [id number] Report ID: [id number]
== END 2023-02-28 11:35 | disposition home or self-care (01) | DRG 291 ==
LOC: ER 19:10 → ERHOLD 21:16 → 4TH 02-27 08:49
PROVIDERS: ADMIT Internal Medicine Sleep Medicine; ATTEND Internal Medicine Sleep Medicine
PROC: 5A09357 Assistance with Respiratory Ventilation, Less than 24 Consecutive Hours, Continuous Positive Airway Pressure (ICD-10-PCS; principal; 2023-02-26)
DX: I13.0 Hypertensive heart and chronic kidney disease with heart failure and stage 1 through stage 4 chronic kidney disease, or unspecified chronic kidney disease (principal); I50.23 Acute on chronic systolic (congestive) heart failure; J96.01 Acute respiratory failure with hypoxia; N17.9 Acute kidney failure, unspecified; N18.9 Chronic kidney disease, unspecified; I25.10 Atherosclerotic heart disease of native coronary artery without angina pectoris; R53.1 Weakness; E78.5 Hyperlipidemia, unspecified; R50.9 Fever, unspecified; I25.2 Old myocardial infarction; Z72.0 Tobacco use; Z91.148 Patient's other noncompliance with medication regimen for other reason; Z95.1 Presence of aortocoronary bypass graft; Z95.5 Presence of coronary angioplasty implant and graft; Z79.02 Long term (current) use of antithrombotics/antiplatelets; Z79.82 Long term (current) use of aspirin; Z79.899 Other long term (current) drug therapy; Z86.16 Personal history of COVID-19
CPT/HCPCS: 36415; 71045; 71275; 80048; 80053; 80076; 82550; 82947; 83605; 83735; 83880; 84484; 85025; 85610; 85730; 87040; 87635; 87804; 93005; 94660; 94760; 96365; 96366; 96375; 99285; J0692; J1940; J3475; Q9967

== ENCOUNTER 2023-05-14 13:20 | Inpatient (IN) | payer OTHER, SELFPAY ==
[2023-05-14 14:19] LABS: Absolute Lymphocytes (CBC) 1.2 K/uL (0.7-4.9); Hematocrit 50.2 % (39.6-49.0); Lymphocytes % 12.1 % (15.3-44.8); MCV 89.6 fL (80-100); MPV 8.1 fL (7.6-11.3); Platelets 199 thou/uL (152-406)
[2023-05-14] MEDS ORDERED: ASPIRIN 81 MG CHEWABLE TABLET ONE (14:37)
[2023-05-14] MEDS ORDERED: NITROGLYCERIN 0.4 MG/TAB SL ONE (14:37)
[2023-05-14 14:39] LABS: Albumin 3.8 g/dL (3.4-5.0); Bilirubin Direct 0.2 mg/dL (0-0.2); Bilirubin Indirect, Calculated 0.8 mg/dL (0.2-0.8); Magnesium 1.5 mg/dL (1.6-2.4)
[2023-05-14 14:42] LABS: Troponin High Sensitivity 100.1 pg/mL (<58.9)
--- NOTE | 2023-05-14 14:45 | RAD REPORT ---
EXAM DESCRIPTION: RAD - Chest Single View - 05/14/2023 2:28 pm CLINICAL HISTORY: DYSPNEA Chest pain. COMPARISON: Chest Single View dated 02/26/2023; Chest Single View dated 01/22/2023; Chest Single View dated 08/21/2022; Chest For Pe Angio dated 02/26/2023 FINDINGS: Portable technique limits examination quality. Mild interstitial edema pattern suspected. The heart is upper limit of normal in size. No displaced f ractures.Sternotomy wires.
[2023-05-14] MEDS ORDERED: FUROSEMIDE 40 MG/4 ML VIAL ONE (14:50)
--- NOTE | 2023-05-14 14:54 | EDPHYS ---
Physician Documentation [facility] Name: Rizwan Betancur Age: 57 yrs Sex: Male : 1965 Arrival Date: 05/14/2023 Time: 13:20 Bed 3 Private MD: ED Physician José Suarez HPI: 05/14 13:31 This 57 yrs old Male presents to ER via Ambulatory with complaints of Chest jh7 Pain. 13:31 Onset: The symptoms/episode began/occurred 2 hour(s) ago. Associated signs and jh7 symptoms: Pertinent positives: shortness of breath, Pertinent negatives: abdominal pain, constipation, cough, fever, headache, sore throat, vomiting, wheezing. 57-year-old male with a history of MA with CABG done 6 months ago, CHF, and hypertension presents to the ER for shortness of breath for the past 2 hours. He reports very mild left-sided chest pain but states that the shortness of breath is his main concern. He states that he does not know who his PCP or trust officer is and knows that he takes 5 medications, but is unsure what they are. Denies fever, dizziness, syncope, cough, or any other symptoms at this time.. Historical: - Allergies: 13:34 No Known Allergies; ko1 - PMHx: 13:34 Hypertensive disorder; Myocardial infarction; ko1 - PSHx: 13:34 heart stent; ko1 - Immunization history:: Adult Immunizations up to date. - Social history:: Smoking status: Patient reports the use of cigarette tobacco products, smokes one pack cigarettes per day. ROS: 13:31 Constitutional: Negative for fever, chills, and weight loss, ENT: Negative for injury, jh7 pain, and discharge, Neck: Negative for injury, pain, and swelling, Abdomen/GI: Negative for abdominal pain, nausea, vomiting, diarrhea, and constipation, Back: Negative for injury and pain, MS/Extremity: Negative for injury and deformity, Skin: Negative for injury, rash, and discoloration, Neuro: Negative for headache, weakness, numbness, tingling, and seizure, 13:31 Cardiovascular: Positive for chest pain, orthopnea, 13:31 Respiratory: Positive for shortness of breath, Negative for cough, wheezing, 13:31 All other systems are negative, Exam: 13:31 Constitutional: This is a well developed, well nourished patient who is awake, alert, jh7 and in no acute distress. Head/Face: Normocephalic, atraumatic. Neck: Trachea midline, no thyromegaly or masses palpated, and no cervical lymphadenopathy. Supple, full range of motion without nuchal rigidity, or vertebral point tenderness. No Meningismus. Cardiovascular: Regular rate and rhythm with a normal S1 and S2. No gallops, murmurs, or rubs. Normal PMI, no JVD. No pulse deficits. Abdomen/GI: Soft, non-tender, with normal bowel sounds. No distension or tympany. No guarding or rebound. No evidence of tenderness throughout. Back: No spinal tenderness. No costovertebral tenderness. Full range of motion. Skin: Warm, dry with normal turgor. Normal color with no rashes, no lesions, and no evidence of cellulitis. MS/ Extremity: Pulses equal, no cyanosis. Neurovascular intact. Full, normal range of motion. Neuro: Awake and alert, GCS 15, oriented to person, place, time, and situation. Motor strength 5/5 in all extremities. Sensory grossly intact. Normal gait. 13:31 Respiratory: the patient does not display signs of respiratory distress, Respirations: labored breathing, that is mild, Breath sounds: rales, that are mild, are located in both bases, Vital Signs: 13:31 BP 204 / 126; Pulse 97; Resp 19; Temp 98.7; Pulse Ox 95% on R/A; ko1 14:44 BP 162 / 99; Pulse 91; Resp 18; Pulse Ox 98% on R/A; ld1 MDM: 13:37 Patient medically screened. jh7 14:55 Differential diagnosis: pneumonia CHF exacerbation, hypertensive crisis, myocardial jh7 infarction, NSTEMI, stable angina, bronchitis, pulmonary edema. Data reviewed: vital signs, nurses notes, lab test result(s), EKG, radiologic studies, plain films. Consideration of Admission/Observation Patient was admitted/placed on observation. Management of patient was discussed with the following: Hospitalist: Dr. Crenshaw. I considered the following discharge prescriptions or medication management in the emergency department Medications were administered in the Emergency Department. See MAR. Independent interpretation of the following test(s) in the Emergency Department EKG: See my EKG interpretation above. Care significantly affected by the following chronic conditions: Hypertension, Congestive Heart Failure. Scoring Tools HEART Score: History: ECG: Age: Risk Factors: Troponin: Total Score = 8. Counseling: I had a detailed discussion with the patient and/or guardian regarding the historical points, exam findings, and any diagnostic results supporting the discharge/admit diagnosis, the need for further work-up and treatment in the hospital. Response to treatment: the patient's symptoms have mildly improved after treatment. 05/14 13:43 Order name: Basic Metabolic Panel; Complete Time: 14:46 [facility] 05/14 13:43 Order name: CBC with Diff; Complete Time: 14:46 [facility] 05/14 13:43 Order name: LFT's; Complete Time: 14:46 [facility] 05/14 13:43 Order name: Magnesium; Complete Time: 14:46 [facility] 05/14 13:43 Order name: NT PRO-BNP; Complete Time: 14:46 [facility] 05/14 13:43 Order name: PT-INR; Complete Time: 15:21 [facility] 05/14 13:43 Order name: Troponin HS; Complete Time: 14:46 [facility] 05/14 15:39 Order name: Basic Metabolic Panel EDMS 05/14 15:39 Order name: Basic Metabolic Panel EDMS 05/14 15:39 Order name: Basic Metabolic Panel EDMS 05/14 15:39 Order name: Basic Metabolic Panel EDMS 05/14 15:39 Order name: CBC with Automated Diff EDMS 05/14 15:39 Order name: CBC with Automated Diff EDMS 05/14 15:39 Order name: CBC with Automated Diff EDMS 05/14 15:39 Order name: CBC with Automated Diff EDMS 05/14 15:39 Order name: Lipid Profile EDMS 05/14 15:39 Order name: Lipid Profile EDMS 05/14 15:39 Order name: NT PRO-BNP EDMS 05/14 15:39 Order name: NT PRO-BNP EDMS 05/14 15:39 Order name: Troponin High Sensitivity EDMS 05/14 15:39 Order name: Troponin High Sensitivity EDMS 05/14 15:39 Order name: Troponin High Sensitivity EDMS 05/14 13:43 Order name: XRAY Chest (1 view); Complete Time: 14:47 [facility] 05/14 13:43 Order name: EKG; Complete Time: 13:44 [facility] 05/14 15:39 Order name: EKG Electrocardiogram [facility] 05/14 15:39 Order name: EKG Electrocardiogram [facility] 05/14 15:39 Order name: EKG Electrocardiogram [facility] 05/14 13:43 Order name: Cardiac monitoring; Complete Time: 13:51 [facility] 05/14 13:43 Order name: EKG - Nurse/Tech; Complete Time: 13:51 [facility] 05/14 13:43 Order name: IV Saline Lock; Complete Time: 14:12 [facility] 05/14 13:43 Order name: Labs collected and sent; Complete Time: 14:12 [facility] 05/14 13:43 Order name: O2 Per Protocol; Complete Time: 14:12 [facility] 05/14 13:43 Order name: O2 Sat Monitoring; Complete Time: 14:12 [facility] EC:44 Rate is 95 beats/min. Rhythm is regular. QRS [place] is Normal. AR interval is normal at [facility] 140 msec. QRS interval is normal at 90 msec. QT interval is normal at 354 msec. Clinical impression: Sinus rhythm with occasional PVCs, biatrial enlargement. Administered Medications: 14:40 Drug: Aspirin PO Chewable Tablet 324 mg PO once; 81 mg tablets x 4 Route: PO; ld1 14:40 Not Given (Patient Refused): nitroglycerin0.4 mg Sublingual once; every five minute if ld1 needed x3 14:53 Drug: Furosemide IVP 40 mg IVP once; give over 2 minutes Route: IVP; Site: right ld1 antecubital; Disposition Summary: 05/14/23 14:53 Hospitalization Ordered Notes: Hospitalization Status: Inpatient Admission [facility] Provider: Alaina Crenshaw [facility] Location: Telemetry/MedSurg (Inpatient) [facility] Condition: Stable [facility] Problem: chronic [facility] Symptoms: have worsened [facility] Bed/Room Type: Standard [facility] Room Assignment: [facility](05/14/23 15:39) Diagnosis - Subsequent non-ST elevation (NSTEMI) myocardial infarction [facility] - Acute on chronic combined systolic (congestive) and diastolic (congestive) heart [facility] failure Forms: - Medication Reconciliation Form [facility] - SBAR form [facility] - Leadership Thank You Letter [facility] Signatures: Dispatcher [employer] [facility] Kelsea Aj Lauren, RN RN ld1 Chandni Baca, MECHANICAL ENGINEERING DRAFTSPERSON MECHANICAL ENGINEERING DRAFTSPERSON jh7 Kateryna Becker, RN RN ko1 Corrections: (The following items were deleted from the chart) 15:39 14:53 jh7 15:40 13:31 This 57 yrs old Male presents to ER via Ambulatory with complaints of jh7 Chest Pain. jh7
--- NOTE | 2023-05-14 14:54 | ER ---
Nurse's Notes [facility] Name: Rizwan Betancur Age: 57 yrs Sex: Male : 1965 Arrival Date: 05/14/2023 Time: 13:20 Bed 3 Private MD: Diagnosis: Subsequent non-ST elevation (NSTEMI) myocardial infarction;Acute on chronic combined systolic (congestive) and diastolic (congestive) heart failure Presentation: 05/14 13:31 Chief complaint: Patient states: chest hurts when taking a deep breath, has a cardiac ko1 history. Coronavirus screen: At this time, the client does not indicate any symptoms associated with coronavirus-19. Ebola Screen: No symptoms or risks identified at this time. Initial Sepsis Screen: Does the patient meet any 2 criteria? No. Patient's initial sepsis screen is negative. Does the patient have a suspected source of infection? No. Patient's initial sepsis screen is negative. Risk Assessment: Do you want to hurt yourself or someone else? Patient reports no desire to harm self or others. Onset of symptoms was May 14, 2023. 13:31 Method Of Arrival: Ambulatory ko1 13:31 Acuity: CRYSTAL 3 ko1 Triage Assessment: 13:35 General: Appears in no apparent distress. Behavior is calm, cooperative, appropriate ko1 for age. Pain: Complains of pain in chest. Cardiovascular: Reports chest pain, shortness of breath. Historical: - Allergies: 13:34 No Known Allergies; ko1 - PMHx: 13:34 Hypertensive disorder; Myocardial infarction; ko1 - PSHx: 13:34 heart stent; ko1 - Immunization history:: Adult Immunizations up to date. - Social history:: Smoking status: Patient reports the use of cigarette tobacco products, smokes one pack cigarettes per day. Screenin:45 [facility] ED Fall Risk Assessment (Adult) History of falling in the last 3 months, ld1 including since admission No falls in past 3 months (0 pts). Abuse screen: Denies threats or abuse. Denies injuries from another. Nutritional screening: No deficits noted. Tuberculosis screening: No symptoms or risk factors identified. Assessment: 14:44 General: Appears in no apparent distress. comfortable, Behavior is calm, cooperative, ld1 appropriate for age. Pain: Complains of pain in chest Pain does not radiate. Pain currently is 7 out of 10 on a pain scale. Quality of pain is described as throbbing, Pain began suddenly. Neuro: Level of Consciousness is awake, alert, obeys commands, Oriented to person, place, time, situation. Cardiovascular: Capillary refill < 3 seconds Patient's skin is warm and dry. Rhythm is sinus rhythm. Respiratory: Airway is patent Respiratory effort is even, unlabored. GI: Abdomen is round non-distended. : No signs and/or symptoms were reported regarding the genitourinary system. EENT: No signs and/or symptoms were reported regarding the EENT system. Derm: No signs and/or symptoms reported regarding the dermatologic system. Musculoskeletal: No signs and/or symptoms reported regarding the musculoskeletal system. Vital Signs: 13:31 BP 204 / 126; Pulse 97; Resp 19; Temp 98.7; Pulse Ox 95% on R/A; ko1 14:44 BP 162 / 99; Pulse 91; Resp 18; Pulse Ox 98% on R/A; ld1 ED Course: 13:21 Patient arrived in ED. im 13:34 Triage completed. ko1 13:35 Arm band placed on right wrist. Patient placed in an exam room, on a stretcher, on ko1 radiation monitor, on pulse oximetry, Patient notified of wait time. 13:37 Chandni Baca FNP is PHCP. [facility] 13:37 José Suarez MD is Attending Physician. [facility] 13:51 EKG done, by ED staff. aw1 14:11 Inserted saline lock: 20 gauge in right antecubital area, using aseptic technique. zm Blood collected. 14:12 Initial lab(s) drawn, by il, sent to lab. 14:30 XRAY Chest (1 view) In Process Unspecified. EDMS 14:45 Patient has correct armband on for positive identification. Placed in gown. Bed in low ld1 position. Call light in reach. Side rails up X2. monitor and storage bin tender on. Pulse ox on. NIBP on. Door closed. Noise minimized. Warm blanket given. 14:45 No provider procedures requiring assistance completed. Patient maintains SpO2 ld1 saturation greater than 95% on room air. 14:52 Alaina Crenshaw MD is Hospitalizing Provider. [facility] 16:13 Sheila Bartholomew, RN is Primary Nurse. ld1 16:14 Patient admitted, IV remains in place. ld1 Administered Medications: 14:40 Drug: Aspirin PO Chewable Tablet 324 mg PO once; 81 mg tablets x 4 Route: PO; ld1 14:40 Not Given (Patient Refused): nitroglycerin0.4 mg Sublingual once; every five minute if ld1 needed x3 14:53 Drug: Furosemide IVP 40 mg IVP once; give over 2 minutes Route: IVP; Site: right ld1 antecubital; Medication: 16:14 VIS not applicable for this client. ld1 Outcome: 14:53 Decision to Hospitalize by Provider. [facility] 16:13 Admitted to Med/surg accompanied by tech, Report called to SOFÍA Robles ld1 16:13 Condition: stable 16:13 Instructed on the need for admit, 16:41 Patient left the ED. ld1 Signatures: Dispatcher [employer] EDMS Sheila Bartholomew, RN RN ld1 Vidya Robertson Jennifer, STRIKER OFF STRIKER OFF 7 Kateryna Becker RN RN ko1 Rae Loya Alyssa aw
[2023-05-14 15:20] LABS: Protime INR 1.12
[2023-05-14] MEDS ORDERED: IPRATROPIUM BROM 0.5MG/2.5ML NEB PRN (15:32)
[2023-05-14] MEDS ORDERED: NITROGLYCERIN 0.4 MG/TAB SL PRN (15:32)
[2023-05-14] MEDS ORDERED: ALBUTEROL 2.5 MG/3 ML NEB SOL NEB PRN (15:32)
[2023-05-14] MEDS ORDERED: MORPHINE 4 MG/ML SYR IV PRN (15:32)
[2023-05-14] MEDS ORDERED: ACETAMINOPHEN 500 MG TAB PO PRN (15:32)
--- NOTE | 2023-05-14 15:41 | P.HP ---
Certification for Inpatient With expected LOS: <2 Midnights <Gold Malagon - Last Filed: 05/14/23 15:49> Patient History Date of Service: 05/14/23 Reason for admission: NSTEMI, CHF History of Present Illness: Patient is a 57-year-old male with a past medical history significant for hypertension,, CAD, history of CABG, nicotine dependence who presents with complaint of shortness of breath onset this morning. Patient reports chest discomfort and Shortness of breath since this morning 121 am after mild work.Patient denies fever, chills, or bausea or vomiting. Symptoms are aggravated by exertion and relieved by nothing. Patient decided to present to the hospital due to worsening symptoms. ED course: Vital Signs: 13:31 BP 204 / 126; Pulse 97; Resp 19; Temp 98.7; Pulse Ox 95% on R/A; EKG shows sinus rhythm with PVCs. Initial labs are significant for elevated troponin of 100.1, elevated BNP 3297, low magnesium 1.5, GFR of 53. Chest x-ray shows mild interstitial edema pattern. Admitting the patient with a diagnosis of non-ST elevation [place], acute on chronic combined systolic and diastolic heart failure. - Past Medical/Surgical History -: [place] -: HTN -: CAD -: Cardiac Stent placement - Social History Alcohol use: Yes CD- Drugs: No Caffeine use: Yes <Gold Malagon - Last Filed: 05/14/23 15:49> Date of Service: 05/14/23 <Alaina Crenshaw - Last Filed: 05/14/23 17:47> Allergies No Known Allergies Allergy (Unverified 08/21/22 15:57) Home Medications: Aspirin Chewable [Aspirin Chewable*] 1 tab PO DAILY 01/23/23 Carvedilol [Coreg] 12.5 mg PO BID 30 Days #60 tab 02/28/23 Clopidogrel Bisulfate [Plavix*] 1 tab PO DAILY 90 Days #90 tab 02/28/23 Furosemide [Lasix] 20 mg PO DAILY 90 Days #90 tab 02/28/23 Tamsulosin [Flomax*] 0.4 mg PO DAILY 90 Days #90 cap 02/28/23 lisinopriL [Lisinopril] 20 mg PO DAILY 90 Days #90 tab 02/28/23 Review of Systems 10-point ROS is otherwise unremarkable <Gold Malagon - Last Filed: 05/14/23 15:49> Physical Examination - Physical Exam General: Alert, In no apparent distress, Oriented x3 HEENT: Atraumatic, Normocephalic Neck: Supple, 2+ carotid pulse no bruit Respiratory: Clear to auscultation bilaterally, Normal air movement Cardiovascular: No edema, Normal pulses, Regular rate/rhythm Gastrointestinal: Normal bowel sounds, Hypoactive, Non-distended Musculoskeletal: No clubbing, No swelling Integumentary: No rashes, No breakdown Neurological: Normal gait, Normal speech - Studies Laboratory Data (last 24 hrs) 05/14/23 05/14/23 05/14/23 14:08 14:08 14:08 WBC 9.80 Hgb 16.9 Hct 50.2 H Plt Count 199 PT 12.3 INR 1.12 Sodium 139 Potassium 4.0 BUN 18 Creatinine 1.54 H Glucose 145 H Magnesium 1.5 L Total Bilirubin 1.0 AST 20 ALT 34 Alkaline Phosphatase 120 H <Gold Malagon - Last Filed: 05/14/23 15:49> - Studies Laboratory Data (last 24 hrs) 05/14/23 05/14/23 05/14/23 14:08 14:08 14:08 WBC 9.80 Hgb 16.9 Hct 50.2 H Plt Count 199 PT 12.3 INR 1.12 Sodium 139 Potassium 4.0 BUN 18 Creatinine 1.54 H Glucose 145 H Magnesium 1.5 L Total Bilirubin 1.0 AST 20 ALT 34 Alkaline Phosphatase 120 H <Alaina Crenshaw - Last Filed: 05/14/23 17:47> Assessment and Plan - Problems (Diagnosis) (1) Non-STEMI (non-ST elevated myocardial infarction) Current Visit: Yes Status: Acute (2) Acute on chronic combined systolic and diastolic CHF (congestive heart failure) Current Visit: Yes Status: Acute (3) History of coronary artery bypass graft Current Visit: Yes Status: Acute - Plan Patient is a 57-year-old male with a past medical history significant for hypertension,, CAD, history of CABG, nicotine dependence who presents with complaint of shortness of breath onset this morning. Patient reports chest discomfort and Shortness of breath since this morning 121 am after mild work.Patient denies fever, chills, or bausea or vomiting. Symptoms are agg ravated by exertion and relieved by nothing. Patient decided to present to the hospital due to worsening symptoms. ED course: Vital Signs: 13:31 BP 204 / 126; Pulse 97; Resp 19; Temp 98.7; Pulse Ox 95% on R/A; EKG shows sinus rhythm with PVCs. Initial labs are significant for elevated troponin of 100.1, elevated BNP 3297, low magnesium 1.5, GFR of 53. Chest x-ray shows mild interstitial edema pattern. Admitting the patient with a diagnosis of non-ST elevation VT, acute on chronic combined systolic and diastolic heart failure. Discharge Plan: Home Plan to discharge in: 48 Hours - Advance Directives Does patient have a Living Will: No Does patient have a Durable POA for Healthcare: No - Code Status/Comfort Care Code Status Assessed: Yes (full code) Code Status: Full Code Physician Review: Patient Assessed, Agree with Above Assessment and Plan Critical Care: No Time Spent Managing Pts Care (In Minutes): 55 (minutes) <Gold Malagon - Last Filed: 05/14/23 15:49> - Plan Pt seen and examined. I agree with the note by the TRANSCRIPTION COORDINATOR. Pt is a 57 yo male with past medical history of CAD s/p CABG, Htn and nicotine dependence who presents with SOB that started 2 hours before this admission. 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 On admission, lab studies show elevated troponin of 100.1, elevated BNP 3297, low magnesium 1.5, GFR of 53. Chest x-ray shows mild interstitial edema pattern. At bedside, pt is in NAD but complains of left ribcage pain with some movement. A/P: Chest pain: Likely musculoskeletal pain. troponin is 100.1. Will trend troponin q6h. Pt has hx of CAD s/p CABG. Acute on chronic combined systolic and diastolic heart failure: BNP is 3297. Will continue lasix, strict I/O and daily weight. Will follow up Echo and consult Cardiology. SOHAIL : Cr is 1.54. Will avoid nephrotoxin and monitor renal renal function. Htn: Will continue home med. DVT ppx: SCD <Alaina Crenshaw - Last Filed: 05/14/23 17:47>
[2023-05-14] MEDS ORDERED: FUROSEMIDE 20 MG/ 2ML VIAL IV SCH (17:00)
[2023-05-14] MEDS ORDERED: LABETALOL 20 MG/4ML SYRINGE IV PRN (18:17)
[2023-05-14] MEDS: HEPARIN 5000 UNIT/ML 1 ML VIAL SQ SCH (18:23)
[2023-05-14] MEDS ORDERED: AMLODIPINE 10 MG TAB PO SCH (18:30)
[2023-05-15] MEDS: HEPARIN 5000 UNIT/ML 1 ML VIAL SQ SCH ×3 (01:18→17:31)
[2023-05-15 02:08] LABS: Absolute Lymphocytes (CBC) 1.8 K/uL (0.7-4.9); Lymphocytes % 24.3 % (15.3-44.8); MCV 89.2 fL (80-100); MPV 8.3 fL (7.6-11.3); Platelets 190 thou/uL (152-406); RBC Red Blood Cell Count 5.38 M/uL (4.33-5.43)
[2023-05-15 02:28] LABS: Troponin High Sensitivity 83.9 pg/mL (<58.9)
[2023-05-15 02:29] LABS: Potassium 3.4 mEq/L (3.5-5.1)
[2023-05-15] MEDS ORDERED: HEPARIN/D5W 25,000 UNIT/500 ML BAG IV SCH (08:00)
[2023-05-15] MEDS ORDERED: ASPIRIN EC 81 MG TAB PO SCH (09:00)
[2023-05-15] MEDS ORDERED: METOPROLOL XL 25 MG TAB PO SCH (09:00)
[2023-05-15] MEDS ORDERED: POTASSIUM CL SA 10 MEQ TAB PO ONE (09:00)
[2023-05-15] MEDS ORDERED: INFLUENZA VACCINE (for 6+ mo) 0.5 ML DOSE IMVAC ONE (09:00)
[2023-05-15] MEDS ORDERED: FUROSEMIDE 40 MG/4 ML VIAL IV SCH (09:00)
[2023-05-15] MEDS: NA CHLORIDE 0.9% 1,000 ML IV SCH ×3 (09:23→23:52)
--- NOTE | 2023-05-15 11:06 | P.PN ---
Subjective Date of Service: 05/15/23 Chief Complaint: NSTEMI, CHF Subjective: No new changes, Improving, Doing well Patient is alert and oriented x 3 Sitting up in the bed, NAD Denies chest pain or shortness of breath Vital stable <Gold Malagon - Last Filed: 05/15/23 11:06> Date of Service: 05/16/23 <Alaina Crenshaw Elizabeth - Last Filed: 05/16/23 15:17> Review of Systems 10-point ROS is otherwise unremarkable <Gold Malagon - Last Filed: 05/15/23 11:06> Physical Examination - Vital Signs Temperature: 98.0 F Blood Pressure: 140/88 Pulse: 67 Respirations: 14 Pulse Ox (%): 99 - Physical Exam General: Alert, Oriented x3 HEENT: Atraumatic, Normocephalic Neck: Supple, 2+ carotid pulse no bruit Respiratory: Clear to auscultation bilaterally, Normal air movement Cardiovascular: No edema, Normal pulses Capillary refill: <2 Seconds Gastrointestinal: Normal bowel sounds, Soft and benign Musculoskeletal: No clubbing, No swelling Neurological: Normal gait, Normal speech - Studies Laboratory Data (last 24 hrs) 05/14/23 05/14/23 05/14/23 14:08 14:08 14:08 WBC 9.80 Hgb 16.9 Hct 50.2 H Plt Count 199 PT 12.3 INR 1.12 Sodium 139 Potassium 4.0 BUN 18 Creatinine 1.54 H Glucose 145 H Magnesium 1.5 L Total Bilirubin 1.0 AST 20 ALT 34 Alkaline Phosphatase 120 H <Gold Malagon - Last Filed: 05/15/23 11:06> Assessment And Plan - Current Problems (Diagnosis) (1) Non-STEMI (non-ST elevated myocardial infarction) Current Visit: Yes Status: Acute (2) Acute on chronic combined systolic and diastolic CHF (congestive heart failure) Current Visit: Yes Status: Acute (3) History of coronary artery bypass graft Current Visit: Yes Status: Acute (4) HTN (hypertension) Current Visit: Yes Status: Acute (5) SOHAIL (acute kidney injury) Current Visit: Yes Status: Acute - Plan A/P: Chest pain/NSTEMI: -High troponin. No CP now.Waiting for Batch Freezer. Pt has hx of CAD s/p CABG. -On asa, Plavix, and statin. Acute on chronic combined systolic and diastolic heart failure: BNP is 3297. Will continue lasix, strict I/O and daily weight. Will follow up Echo and consult Cardiology. SOHAIL : Cr is 1.54. GFR 47. Will avoid nephrotoxin and monitor renal renal function. Htn: Will continue home med. DVT ppx: SCD Discharge Plan: Home Plan to discharge in: 24 Hours - Code Status/Comfort Care Code Status Assessed: Yes (Full code) Code Status: Full Code Physician Review: Patient Assessed, Agree with Above Assessment and Plan Critical Care: No Time Spent Managing PTS Care (In Minutes): 35 (Minutes) <Gold Malagon - Last Filed: 05/15/23 11:06> - Plan Pt seen and examined. I agree with the note by the SHINGLE SAWYER. Waiting for cardiology eval. <Alaina Crenshaw - Last Filed: 05/16/23 15:17>
--- NOTE | 2023-05-15 11:49 | EKG ---
Test Date: 2023-05-14 Test Time: 13:44:22 Intelligence Senior Sergeant: EDITH MEASUREMENT RESULTS: Intervals: Rate: 94 UT: 142 QRSD: 86 QT: 358 QTc: 447 [place]: P: 70 UT: 142 QRS: 82 T: 47 INTERPRETIVE STATEMENTS: Normal sinus rhythm Biatrial enlargement Possible Inferior infarct, age undetermined Cannot rule out Anteroseptal infarct, age undetermined T wave abnormality, consider lateral ischemia Abnormal ECG Compared to ECG 02/26/2023 19:19:29 Myocardial infarct finding now present Sinus tachycardia no longer present T-wave abnormality still present Possible ischemia still present Electronically Signed On 05-15-23 11:46:46 IN HOME AIDE by Florain Mosley
[2023-05-15] MEDS: NICOTINE 21 MG/PAT TD SCH (12:55)
[2023-05-15] MEDS: carvediloL 12.5 MG TAB PO SCH (21:01)
[2023-05-16] MEDS: HEPARIN 5000 UNIT/ML 1 ML VIAL SQ SCH ×3 (01:21→17:05)
[2023-05-16 03:58] LABS: Absolute Lymphocytes (CBC) 1.4 K/uL (0.7-4.9); Hematocrit 48.3 % (39.6-49.0); Lymphocytes % 22.1 % (15.3-44.8); MCV 89.6 fL (80-100); MPV 8.6 fL (7.6-11.3); Platelets 170 thou/uL (152-406); RBC Red Blood Cell Count 5.39 M/uL (4.33-5.43)
[2023-05-16] MEDS ORDERED: MELATONIN 5 MG TABLET PO PRN (04:02)
[2023-05-16 04:17] LABS: Potassium 3.6 mEq/L (3.5-5.1)
[2023-05-16 09:22] VITALS: O2SAT 98
--- NOTE | 2023-05-16 11:37 | P.CNS ---
Date of Consult: 05/15/23 Reason for Consult: Chest pain Requesting Physician: Alaina Crenshaw Chief Complaint: NSTEMI, CHF History of Present Illness: Mr. Bj Betancur is a 57 yo with a past medical history of HTN, [place], CABG, CHF who presented to the emergency room with dyspnea on exertion. He currently has 4/10 chest pain, troponin was elevated in the ED yesterday to 100, trending down today at 85.9 but pain has not completely resolved. Allergies No Known Allergies Allergy (Unverified 08/21/22 15:57) Home medications list reviewed: Yes Home Medications: Aspirin Chewable [Aspirin Chewable*] 1 tab PO DAILY 01/23/23 Carvedilol [Coreg] 12.5 mg PO BID 30 Days #60 tab 02/28/23 Clopidogrel Bisulfate [Plavix*] 1 tab PO DAILY 90 Days #90 tab 02/28/23 Furosemide [Lasix] 20 mg PO DAILY 90 Days #90 tab 02/28/23 Tamsulosin [Flomax*] 0.4 mg PO DAILY 90 Days #90 cap 02/28/23 lisinopriL [Lisinopril] 20 mg PO DAILY 90 Days #90 tab 02/28/23 - Past Medical/Surgical History -: [place] -: HTN -: CAD -: Cardiac Stent placement -: CABG - Social History Smoking Status: Current every day smoker Alcohol use: Yes CD- Drugs: No Caffeine use: Yes Review of Systems 10-point ROS is otherwise unremarkable Respiratory: As per HPI Cardiovascular: As per HPI Physical Examination Temp Pulse Resp BP Pulse Ox 97.6 F 61 18 140/92 H 98 05/16/23 08:00 05/16/23 08:00 05/16/23 08:00 05/16/23 08:00 05/16/23 08:00 General: Alert, In no apparent distress, Oriented x3 HEENT: Atraumatic, Normocephalic, PERRLA Neck: Supple, 2+ carotid pulse no bruit, JVD not distended Respiratory: Clear to auscultation bilaterally, Normal air movement Cardiovascular: No edema, Other (NSR at 69 overnight, ECHO in December with EF 40- 45%) Capillary refill: <2 Seconds Gastrointestinal: Normal bowel sounds, Soft and benign, Other (NPO) Musculoskeletal: No clubbing Integumentary: No rashes Neurological: Normal gait, Normal tone Lymphatics: No axilla or inguinal lymphadenopathy External genitalia: Deferred Rectal: Deferred - Problems (1) Congestive heart failure Current Visit: No Status: Acute Plan: Continue to monitor BNP, NPO until post NM stress and possible cath today, then low salt diet, daily weights, I&O, monitor electrolytes and replete prn Qualifiers: Heart failure chronicity: unspecified (2) HTN (hypertension) Current Visit: Yes Status: Acute Plan: Continue Carvedilol, lisinopril, flomax, prn labetolol, monitor vs (3) Non-STEMI (non-ST elevated myocardial infarction) Current Visit: Yes Status: Acute Plan: Pain relief, continue to trend troponins, NS test today with possible cardiac cath this afternoon. Pt has ECHO in December 2022. EF 40-45%
[2023-05-16] MEDS: NA CHLORIDE 0.9% 1,000 ML IV SCH (11:40)
[2023-05-16] MEDS: NICOTINE 21 MG/PAT TD SCH (11:42)
[2023-05-16] MEDS: TAMSULOSIN 0.4 MG SR CAP PO SCH (11:43)
[2023-05-16] MEDS: CLOPIDOGREL 75 MG TABLET PO SCH (11:43)
[2023-05-16] MEDS: carvediloL 12.5 MG TAB PO SCH ×2 (11:43→20:26)
[2023-05-16] MEDS: ASPIRIN 81 MG CHEWABLE TABLET PO SCH (11:43)
--- NOTE | 2023-05-16 11:43 | P.PN ---
Subjective Date of Service: 05/16/23 Chief Complaint: NSTEMI, CHF Subjective: Improving, C/O voiced (episode of left sided CP at 1 am while at rest , resolved without any interventions) Patient is alert and oriented x 3 Sitting up in the bed, NAD Denies chest pain or shortness of breath now but episode of left sided CP at 1 am while at rest , resolved without any interventions Vital stable <Gold Malagon - Last Filed: 05/16/23 11:36> Date of Service: 05/17/23 <LinarodriguezBaldemaralhajigayathri Elizabeth - Last Filed: 05/17/23 07:12> Review of Systems 10-point ROS is otherwise unremarkable <Gold Malagon - Last Filed: 05/16/23 11:36> Physical Examination - Vital Signs Temperature: 97.6 F Blood Pressure: 140/92 Pulse: 61 Respirations: 18 Pulse Ox (%): 98 - Physical Exam General: Alert, Oriented x3 HEENT: Atraumatic, Normocephalic Neck: Supple, 2+ carotid pulse no bruit Respiratory: Clear to auscultation bilaterally, Normal air movement Cardiovascular: No edema, Normal pulses Capillary refill: <2 Seconds Gastrointestinal: Normal bowel sounds, Soft and benign Musculoskeletal: No clubbing, No swelling Integumentary: No rashes, No breakdown Neurological: Normal gait, Normal speech <Gold Malagon - Last Filed: 05/16/23 11:36> Assessment And Plan - Current Problems (Diagnosis) (1) Non-STEMI (non-ST elevated myocardial infarction) Current Visit: Yes Status: Acute (2) Acute on chronic combined systolic and diastolic CHF (congestive heart failure) Current Visit: Yes Status: Acute (3) History of coronary artery bypass graft Current Visit: Yes Status: Acute (4) HTN (hypertension) Current Visit: Yes Status: Acute (5) SOHAIL (acute kidney injury) Current Visit: Yes Status: Acute - Plan A/P: Chest pain/NSTEMI: -High troponin. No CP now. episode of left sided CP at 1 am while at rest , resolved without any interventions. -Pt has hx of CAD s/p CABG. -On asa, Plavix, and statin. Acute on chronic combined systolic and diastolic heart failure: -Improving, Denies any respiratory distress or dyspnea. BNP is 3297. Will continue lasix, strict I/O and daily weight. -Will follow up Echo and consult Cardiology. SOHAIL : -Improving BUN 28, Crae 1.55, GFR 53. Will avoid nephrotoxin and monitor renal renal function. -Urine out put is normal Htn: -Chronic, controlled. Will continue home med. DVT ppx: SCD Code Status: full code Diet: cardiac Physician Review: Patient Assessed, Agree with Above Assessment and Plan <Gold Malagon - Last Filed: 05/16/23 11:36> - Plan Pt seen and examined. I agree withe note by the DICE DEALER. Cardiology will do NM stress test with possible cardiac cath. <Alaina Crenshaw - Last Filed: 05/17/23 07:12>
[2023-05-16] MEDS: FUROSEMIDE 20 MG TABLET PO SCH (11:44)
[2023-05-16] MEDS: lisinopriL 20 MG TAB PO SCH (11:44)
[2023-05-16] MEDS ORDERED: REGADENOSON 0.4 MG/5 ML SYR IV ONE (13:18)
--- NOTE | 2023-05-16 14:34 | RAD REPORT ---
EXAM DESCRIPTION: NM - Rest Stress Cardiac Imaging - 05/16/2023 2:18 pm CLINICAL HISTORY: Chest pain. COMPARISON: None. TECHNIQUE: The patient was administered 10.9 mCi of Tc 99m Sestamibi prior to resting SPECT imaging of the heart. The patient was then administered 31.2 mCi of Tc 99m Sestamibi following exercise or ph armacologic stress. Multiplanar SPECT images were reviewed. FINDINGS: A large area of diminished radiotracer activity involves the inferior O septal left ventri cular myocardium on stress images. There is mild reaccumulation of radiotracer within the inferior le ft ventricular myocardium on rest sequences. Moderate area of diminished radiotracer uptake involves the anterior apical left ventricular myocardi um on rest and stress images The left ventricular ejection fraction equals 25% IMPRESSION: Large mostly fixed perfusion defect involving the inferior septal left ventricular myoca rdium consistent with an infarct with mild clare-infarct ischemia Moderate fixed perfusion defect anterior apical left ventricle myocardium consistent with an infarct
[2023-05-16 18:58] VITALS: BMI 30.2
[2023-05-17] MEDS: NA CHLORIDE 0.9% 1,000 ML IV SCH ×2 (00:24→15:38)
[2023-05-17] MEDS: HEPARIN 5000 UNIT/ML 1 ML VIAL SQ SCH ×3 (00:24→18:09)
[2023-05-17 02:53] LABS: Absolute Lymphocytes (CBC) 1.9 K/uL (0.7-4.9); Hematocrit 48.3 % (39.6-49.0); Lymphocytes % 27.9 % (15.3-44.8); MCV 90.1 fL (80-100); MPV 8.1 fL (7.6-11.3); Platelets 166 thou/uL (152-406); RBC Red Blood Cell Count 5.36 M/uL (4.33-5.43)
[2023-05-17] MEDS: FUROSEMIDE 20 MG TABLET PO SCH (09:22)
[2023-05-17] MEDS: TAMSULOSIN 0.4 MG SR CAP PO SCH (09:22)
[2023-05-17] MEDS: carvediloL 12.5 MG TAB PO SCH (09:22)
[2023-05-17] MEDS: CLOPIDOGREL 75 MG TABLET PO SCH (09:22)
[2023-05-17] MEDS: lisinopriL 20 MG TAB PO SCH (09:22)
[2023-05-17] MEDS: NICOTINE 21 MG/PAT TD SCH (09:23)
[2023-05-17] MEDS: ASPIRIN 81 MG CHEWABLE TABLET PO SCH (09:23)
--- NOTE | 2023-05-17 11:34 | P.PN ---
Subjective Date of Service: 05/17/23 Chief Complaint: NSTEMI, CHF Subjective: No new changes Review of Systems 10-point ROS is otherwise unremarkable Cardiovascular: Other (denies chest pain) Physical Examination - Vital Signs Temperature: 97.4 F Blood Pressure: 131/91 Pulse: 54 Respirations: 18 Pulse Ox (%): 97 - Physical Exam General: Alert, In no apparent distress, Oriented x3 HEENT: Atraumatic, Normocephalic, PERRLA Neck: Supple, 2+ carotid pulse no bruit, JVD not distended Respiratory: Clear to auscultation bilaterally Cardiovascular: No edema, Normal pulses, Regular rate/rhythm Capillary refill: <2 Seconds Gastrointestinal: Normal bowel sounds, Soft and benign Musculoskeletal: No clubbing Integumentary: No rashes Neurological: Normal speech Lymphatics: No axilla or inguinal lymphadenopathy External genitalia: Deferred Rectal: Deferred Assessment And Plan - Current Problems (Diagnosis) (1) Congestive heart failure Current Visit: No Status: Acute Plan: Continue to monitor BNP, NPO until post NM stress and possible cath today, then low salt diet, daily weights, I&O, monitor electrolytes and replete prn Qualifiers: Heart failure chronicity: unspecified (2) HTN (hypertension) Current Visit: Yes Status: Acute Plan: Continue Carvedilol, lisinopril, flomax, prn labetolol, monitor vs (3) Non-STEMI (non-ST elevated myocardial infarction) Current Visit: Yes Status: Acute Plan: Pain relief, continue to trend troponins, NS test today with possible cardiac cath this afternoon. Pt has ECHO in December 2022. EF 40-45% 05/17/23 IMPRESSION: Large mostly fixed perfusion defect involving the inferior septal left ventricular myocardium consistent with an infarct with mild clare-infarct ischemia Moderate fixed perfusion defect anterior apical left ventricle myocardium consistent with an infarct Likely demand ischemia Maximize medical management, continue aspirin and plavix. follow up outpatient Cardiology STOP SMOKING Physician Review: Patient Assessed, Agree with Above Assessment and Plan
--- NOTE | 2023-05-17 16:39 | P.DS ---
Admission Date: 05/14/23 Discharge Date: 05/17/23 Disposition: ROUTINE DISCHARGE Discharge Condition: GOOD Reason for Admission: NSTEMI, CHF - Problems (1) Non-STEMI (non-ST elevated myocardial infarction) Current Visit: Yes Status: Acute (2) Acute on chronic combined systolic and diastolic CHF (congestive heart failure) Current Visit: Yes Status: Acute (3) History of coronary artery bypass graft Current Visit: Yes Status: Acute (4) HTN (hypertension) Current Visit: Yes Status: Acute (5) SOHAIL (acute kidney injury) Current Visit: Yes Status: Acute Brief History of Present Illness: Patient is a 57-year-old male with a past medical history significant for hypertension,, CAD, history of CABG, nicotine dependence who presents with complaint of shortness of breath onset this morning. Patient reports chest discomfort and Shortness of breath since this morning 121 am after mild work.Patient denies fever, chills, or bausea or vomiting. Symptoms are aggravated by exertion and relieved by nothing. Patient decided to present to the hospital due to worsening symptoms. ED course: Vital Signs: 13:31 BP 204 / 126; Pulse 97; Resp 19; Temp 98.7; Pulse Ox 95% on R/A; EKG shows sinus rhythm with PVCs. Initial labs are significant for elevated troponin of 100.1, elevated BNP 3297, low magnesium 1.5, GFR of 53. Chest x-ray shows mild interstitial edema pattern. Admitting the patient with a diagnosis of non-ST elevation [place], acute on chronic combined systolic and diastolic heart failure. Hospital Course: Bj is a pleasant 57-year-old male with a past medical history significant for hypertension, CAD, history of CABG, nicotine dependence who was admitted to the [facility] on on 05/14/2023 for shortness of breath. And chest pain. Patient was admitted, pain medications and IV fluid given, consulted aerial sprayer as cardiac enzymes were high. Patient had a nuclear stress cardiac imaging on 05/24/2020 showing ejection fraction of 25%.. On 05/17/2023, patient was seen on morning rounds and deemed medically stable for discharge. Currently no chest pain or shortness of breath. Patient was discharged with instructions to schedule follow-up appointments with Dr. Flores aerial sprayer in 1 to 2 weeks for scheduling cardiac catheterization as outpatient. Patient need to use schedule an appointment with his PCP in 3 to 5 days. 1. Please call and schedule a follow-up appointment with your PCP in 3-5 days 2. Please call and schedule a follow-up appointment with [text] in 1 week - Please follow-up with your PCP for medication refills/adjustments Vital Signs/Physical Exam: Temp Pulse Resp BP Pulse Ox 97.4 F 54 18 131/91 H 97 05/17/23 11:38 05/17/23 11:38 05/17/23 11:38 05/17/23 11:38 05/17/23 11:38 General: Alert, Oriented x3 HEENT: Atraumatic, PERRLA Neck: Supple, 2+ carotid pulse no bruit Respiratory: Clear to auscultation bilaterally, Normal air movement Cardiovascular: No edema, Normal pulses, Regular rate/rhythm Capillary refill: <2 Seconds Gastrointestinal: Soft and benign Musculoskeletal: No clubbing, No swelling Integumentary: No rashes, No breakdown Neurological: Normal gait, Normal speech, Normal tone Laboratory Data at Discharge: WBC 6.60 thou/uL (4.3-10.9) 05/17/23 02:26 Hgb 15.8 g/dL (13.6-17.9) 05/17/23 02:26 Hct 48.3 % (39.6-49.0) 05/17/23 02:26 Plt Count 166 thou/uL (152-406) 05/17/23 02:26 PT 12.3 SECONDS (9.5-12.5) 05/14/23 14:08 INR 1.12 05/14/23 14:08 Sodium 136 mEq/L (136-145) 05/17/23 02:26 Potassium 4.0 mEq/L (3.5-5.1) 05/17/23 02:26 BUN 24 mg/dL (7-18) H 05/17/23 02:26 Creatinine 1.46 mg/dL (0.70-1.30) H 05/17/23 02:26 Glucose 124 mg/dL (74-106) H 05/17/23 02:26 Magnesium 1.5 mg/dL (1.6-2.4) L 05/14/23 14:08 Total Bilirubin 1.0 mg/dL (0.2-1.0) 05/14/23 14:08 AST 20 U/L (15-37) 05/14/23 14:08 ALT 34 U/L (16-61) 05/14/23 14:08 Alkaline Phosphatase 120 U/L (45-117) H 05/14/23 14:08 Triglycerides 286 mg/dL (<150) H 05/15/23 01:41 Cholesterol 201 mg/dL (<200) H 05/15/23 01:41 HDL Cholesterol 49 mg/dL (40-60) 05/15/23 01:41 Cholesterol/HDL Ratio 4.10 05/15/23 01:41 Home Medications: Aspirin Chewable [Aspirin Chewable*] 1 tab PO DAILY 01/23/23 Carvedilol [Coreg] 12.5 mg PO BID 30 Days #60 tab 02/28/23 Clopidogrel Bisulfate [Plavix*] 1 tab PO DAILY 90 Days #90 tab 02/28/23 Furosemide [Lasix] 20 mg PO DAILY 90 Days #90 tab 02/28/23 Tamsulosin [Flomax*] 0.4 mg PO DAILY 90 Days #90 cap 02/28/23 lisinopriL [Lisinopril] 20 mg PO DAILY 90 Days #90 tab 02/28/23 Physician Discharge Instructions: Bj is a pleasant 57-year-old male with a past medical history significant for hypertension, CAD, history of CABG, nicotine dependence who was admitted to the [facility] on on 05/14/2023 for shortness of breath. And chest pain. Patient was admitted, pain medications and IV fluid given, consulted aerial sprayer as cardiac enzymes were high. Patient had a nuclear stress cardiac imaging on 05/24/2020 showing ejection fraction of 25%.. On 05/17/2023, patient was seen on morning rounds and deemed medically stable for discharge. Currently no chest pain or shortness of breath. Patient was discharged with instructions to schedule follow-up appointments with Dr. Flores aerial sprayer in 1 to 2 weeks for scheduling cardiac catheterization as out patient. Patient need to use schedule an appointment with his PCP in 3 to 5 days. 1. Please call and schedule a follow-up appointment with your PCP in 3-5 days 2. Please call and schedule a follow-up appointment with [text] in 1 week - Please follow-up with your PCP for medication refills/adjustments Diet: Low sodium Activity: Ad eric Followup: NONE,NONE [Primary Care Provider] - Florian Mosley MD [ACTIVE - CAN ADMIT] -
[2023-05-17 17:54] VITALS: BP 104/70; TEMP 98
== END 2023-05-17 18:15 | disposition home or self-care (01) | DRG 280 ==
LOC: ER 13:20 → 2ND 15:30
PROVIDERS: ADMIT Hospitalist; ATTEND Hospitalist
DX: I21.4 Non-ST elevation (NSTEMI) myocardial infarction (principal); I50.43 Acute on chronic combined systolic (congestive) and diastolic (congestive) heart failure; N17.9 Acute kidney failure, unspecified; I11.0 Hypertensive heart disease with heart failure; I25.2 Old myocardial infarction; F17.210 Nicotine dependence, cigarettes, uncomplicated; Z95.1 Presence of aortocoronary bypass graft; Z95.5 Presence of coronary angioplasty implant and graft; I25.10 Atherosclerotic heart disease of native coronary artery without angina pectoris; Z79.82 Long term (current) use of aspirin; Z79.02 Long term (current) use of antithrombotics/antiplatelets; Z79.899 Other long term (current) drug therapy
CPT/HCPCS: 36415; 71045; 78452; 80048; 80061; 80076; 83735; 83880; 84484; 85025; 85610; 93005; 96374; 99285; A9500; J1644; J1940; J2785; J7030

== ENCOUNTER 2023-07-19 10:05 | Day surgery (SDC) | payer OTHER ==
[2023-07-16 12:34] LABS: Absolute Lymphocytes (CBC) 1.6 K/uL (0.7-4.9); Hematocrit 51.3 % (39.6-49.0); Lymphocytes % 20.4 % (15.3-44.8); MCV 91.9 fL (80-100); MPV 8.9 fL (7.6-11.3); Platelets 165 thou/uL (152-406); RBC Red Blood Cell Count 5.58 M/uL (4.33-5.43)
[2023-07-16 12:39] LABS: Protime INR 1.1
[2023-07-16 12:51] LABS: Potassium 4.8 mEq/L (3.5-5.1)
--- NOTE | 2023-07-17 16:38 | EKG ---
Test Date: 2023-07-16 Test Time: 13:16:41 Internet Application Developer: VALARIE MEASUREMENT RESULTS: Intervals: Rate: 76 MN: 156 QRSD: 94 QT: 388 QTc: 436 [place]: P: 44 MN: 156 QRS: -12 T: 96 INTERPRETIVE STATEMENTS: Normal sinus rhythm Left atrial enlargement Inferior infarct, age undetermined Anterior infarct, age undetermined T wave abnormality, consider lateral ischemia Abnormal ECG Compared to ECG 05/14/2023 13:44:22 No significant changes Electronically Signed On 07-17-23 16:37:38 MOTORIZED SQU[employer]NT by Florian Mosley
[2023-07-19] MEDS: NA CHLORIDE 0.9% 500 ML ONE (10:22)
[2023-07-19 11:12] VITALS: O2SAT 99
[2023-07-19] MEDS ORDERED: FENTANYL CITR 100 MCG/2 ML ONE (12:17)
[2023-07-19] MEDS ORDERED: LIDOCAINE 1% 20 ML MDV ONE (12:17)
[2023-07-19] MEDS ORDERED: HEPA 1000U/500MLS 2,000 UNIT/1,000 ML BAG IV ONE (12:17)
[2023-07-19] MEDS ORDERED: MIDAZOLAM HCL 2 MG/2 ML INJ ONE (12:18)
[2023-07-19] MEDS ORDERED: ATROPINE SULF 1 MG/10 ML SYR IV ONE (12:18)
[2023-07-19] MEDS ORDERED: TICAGRELOR 90 MG TABLET PO ONE (12:25)
[2023-07-19] MEDS ORDERED: ASPIRIN 325 MG TAB ONE (12:25)
[2023-07-19] MEDS ORDERED: HEPARIN 10,000 UNIT/10 ML VIAL IV ONE (12:25)
[2023-07-19] MEDS ORDERED: CLOPIDOGREL 75 MG TABLET ONE (12:25)
[2023-07-19 16:19] VITALS: TEMP 97
[2023-07-19 17:18] VITALS: BP 153/96
--- NOTE | 2023-07-19 17:35 | OP ---
Date of Procedure: 07/19/2023 Surgeon: RAJI DIAZ Procedures Performed: 1.Selective coronary angiogram with bypass graft study. 2.Left heart catheterization. Indication: Drop in ejection fraction and abnormal stress test. Access: Right femoral artery 6-Rwandan, closed with 6-Rwandan Angio-Seal. Complications: None. Bleeding: Less than 50 mL. Total Sedation Time: 45 minutes. Description Of Procedure: After risks, benefits, and alternatives were explained, patient agreed to procedure and signed informed consent. The patient was brought into cardiac catheterization laborato ry, prepped and draped in a sterile fashion. Then, we accessed the right femoral artery using microp uncture kit, ultrasound guidance, and placed a 6-Rwandan [place] sheath and took 6-Rwandan JL4 cathete r into the aortic root over a J-wire, engaged left main, took standard views and exchanged for 6-Fren ch JR4 catheter, engaged the RCA, took standard views and then using the JR4 catheter and over the J- wire across aortic valve into the LV, measured the LVEDP. Pullback did not record any gradient. The n, the catheter was used to engage the RCA and SVG to OM and SVG to RCA, and there was no CAMPOS that i s used. Then, catheter was removed, sheath was removed and 6-Rwandan Angio-Seal was used for closure with good hemostasis. Findings: 1.Left main is normal. 2.LAD: Proximal 20%, mid 40% to distal 50%. Overall, TIN-3 flow and large vessel, normal diagonal branches. 3.Left circumflex: Proximal 30%, mid after the OM1 branch is focal 80% and then there is OM2 that i s large, has 80% proximally. Patent SVG graft to the OM2, and then the left circumflex becomes small and diffusely diseased. 4.RCA: Proximal 100% occlusion. Bypass Graft Study: 1.Patent SVG to OM2. 2.Patent SVG to RCA. 3.LVEDP is 15 mmHg. Conclusion: 1.Severe left circumflex and RCA stenosis with patent graft to the OM2 and to the RCA. 2.Elevated LVEDP. 3.Moderate coronary artery disease elsewhere. Recommendation: Medical management. SR/MODL Voice ID: [id number] Report ID: [id number]
== END 2023-07-19 16:52 | disposition home or self-care (01) ==
LOC: CCL 10:05
PROVIDERS: ATTEND Internal Medicine
DX: I25.10 Atherosclerotic heart disease of native coronary artery without angina pectoris (principal); I25.82 Chronic total occlusion of coronary artery; I11.0 Hypertensive heart disease with heart failure; I50.9 Heart failure, unspecified; E78.5 Hyperlipidemia, unspecified; I73.9 Peripheral vascular disease, unspecified; Z95.1 Presence of aortocoronary bypass graft; Z95.5 Presence of coronary angioplasty implant and graft; Z87.891 Personal history of nicotine dependence
CPT/HCPCS: 93005; 85025; 80048; 36415; 83721; 85610; 82947; 85730; 93459; 76937; C1893; Q9966; C1760; G0269; J2001; J2250; J3010; J7040; 99152; 99153; J0461

== ENCOUNTER → 2023-07-24 | Emergency (ER) | payer OTHER ==
[~2023-07-24] MED LIST: ASPIRIN 81 MG CHEWABLE TABLET ONE; CLOPIDOGREL 75 MG TABLET ONE; NA CHLORIDE 0.9% 2,000 ML ONE
--- NOTE | 2023-07-24 11:46 | RAD REPORT ---
EXAM DESCRIPTION: CT - Ct Stroke Brain Wo Cont - 07/24/2023 11:35 am CLINICAL HISTORY: aphasia COMPARISON: none TECHNIQUE: Computed axial tomography of the head was obtained. All CT scans are performed using dose optimization technique as appropriate and may include automated exposure control or mA/KV adjustment according to patient size. FINDINGS: An intracranial bleed is not seen . The ventricles are normal in caliber. No extra-axial fluid collection is noted. 14 millimeter low-density area right caudate head/anterior right internal capsule. Fluid within the sinuses/ mastoids is not seen. IMPRESSION: 14 millimeter low-density area right caudate head/anterior right internal capsule compat ible with an infarct. The age is indeterminate although it probably is subacute/old rather than acute . Further evaluation with MRI may be helpful Dr Durán of the emergency room was notified at 11:40 a.m. July 24, 2023
[2023-07-24 11:57] LABS: Absolute Lymphocytes (CBC) 1.4 K/uL (0.7-4.9); Hematocrit 49.5 % (39.6-49.0); Lymphocytes % 21.5 % (15.3-44.8); MCV 92.5 fL (80-100); MPV 8.7 fL (7.6-11.3); Platelets 195 thou/uL (152-406); RBC Red Blood Cell Count 5.35 M/uL (4.33-5.43)
[2023-07-24 12:00] LABS: Protime INR 1.07
[2023-07-24 12:13] LABS: Potassium 4.3 mEq/L (3.5-5.1); Troponin High Sensitivity 21.6 pg/mL (<58.9)
--- NOTE | 2023-07-24 12:23 | RAD REPORT ---
EXAM DESCRIPTION: Carolyn Single View07/24/2023 12:16 pm CLINICAL HISTORY: CVA COMPARISON: 2022 FINDINGS: The lungs appear clear of acute infiltrate. The heart is normal size IMPRESSION: No acute abnormalities displayed
--- NOTE | 2023-07-24 12:43 | RAD REPORT ---
EXAM DESCRIPTION: CTHead angio07/24/2023 12:23 pm CLINICAL HISTORY: aphasia COMPARISON: none TECHNIQUE: 100 cc Isovue [address] angiogram of the head was obtained. 3D MIPS reconstruction performed. All CT scans are performed using dose optimization technique as appropriate and may include automated exposure control or mA/KV adjustment according to patient size. FINDINGS: At the level of the cavernous sinus the distal left internal carotid artery becomes opacif ied with contrast. Basilar, anterior cerebral, middle cerebral and posterior cerebral arteries demonstrate no significan t abnormality. Mild calcified plaque distal right internal carotid artery origin right posterior cerebral artery An aneurysm is not seen IMPRESSION: At the level of the cavernous sinus the distal left internal carotid artery becomes opac ified with contrast. More proximal components of the left internal carotid artery are occluded. This probably is acute
--- NOTE | 2023-07-24 12:45 | RAD REPORT ---
EXAM DESCRIPTION: Rene Angio07/24/2023 12:23 pm CLINICAL HISTORY: aphasia COMPARISON: None TECHNIQUE: 100 cc Isovue [address] angiogram of the neck was obtained. 3D MIPS reconstruction performed. All CT scans are performed using dose optimization technique as appropriate and may include automated exposure control or mA/KV adjustment according to patient size. FINDINGS: Visualized aortic arch and great vessels unremarkable The left carotid bulb/internal carot id artery is occluded. The occlusion involves proximal, mid and most of the distal left internal jack [place] artery Mild plaque left common carotid, right common carotid, external and right internal carotid arteries. Vertebral arteries are unremarkable [place] Mild stenosis 0 to 49 % Moderate stenosis 50-69% Severe stenosis 70-99% IMPRESSION: Occlusion of the left carotid bulb, left proximal, mid and most of the distal left inter nal carotid artery. Prior imaging is not available for comparison. This probably is acute. Dr Ann martinez otified 12:37 p.m. July 24, 2023
--- NOTE | 2023-07-24 13:15 | EDPHYS ---
Physician Documentation [facility] Name: Rizwan Betancur Age: 58 yrs Sex: Male : 1965 Arrival Date: 07/24/2023 Time: 10:52 Bed 18 Private MD: ED Physician Theo Durán HPI: 07/24 12:47 This 58 yrs old Male presents to ER via Ambulatory with complaints of Cant sp3 talk. 12:47 58-year-old male with a history of hypertension and AR with recent stent placement last sp3 week on aspirin and Plavix now presents to the ED with 4-day history of off-and-on aphasia constant in nature and today he presents because they "will not go away". His son also found out about it and brought him to the ED. He has been taking his aspirin and Plavix. No other symptoms reported. Review of systems otherwise negative for headache, motor deficit, memory loss, sensory deficit, gait change, chest pain, shortness of breath, back pain, abdominal pain, nausea, vomiting, diarrhea, ataxia, or any other signs or symptoms at this time.. Historical: - Allergies: 11:05 No Known Allergies; as6 - PMHx: 11:05 Hypertensive disorder; Myocardial infarction; as6 - PSHx: 11:05 heart stent; as6 - Immunization history:: Adult Immunizations up to date. - Social history:: Smoking status: Patient reports the use of cigarette tobacco products. ROS: 12:48 Constitutional: Negative for fever, chills, and weight loss, Eyes: Negative for injury, sp3 pain, redness, and discharge, ENT: Negative for injury, pain, and discharge, Neck: Negative for injury, pain, and swelling, Cardiovascular: Negative for chest pain, palpitations, and edema, Respiratory: Negative for shortness of breath, cough, wheezing, and pleuritic chest pain, Abdomen/GI: Negative for abdominal pain, nausea, vomiting, diarrhea, and constipation, Back: Negative for injury and pain, MS/Extremity: Negative for injury and deformity, Skin: Negative for injury, rash, and discoloration, Psych: Negative for depression, anxiety, suicide ideation, homicidal ideation, and hallucinations, Allergy/Immunology: Negative for hives, rash, and allergies, Endocrine: Negative for neck swelling, polydipsia, polyuria, polyphagia, and marked weight changes, Hematologic/Lymphatic: Negative for swollen nodes, abnormal bleeding, and unusual bruising, 12:48 All other systems are negative, Exam: 12:48 Constitutional: This is a well developed, well nourished patient who is awake, alert, sp3 and in no acute distress. Head/Face: Normocephalic, atraumatic. Eyes: Pupils equal round and reactive to light, extra-ocular motions intact. Lids and lashes normal. Conjunctiva and sclera are non-icteric and not injected. Cornea within normal limits. Periorbital areas with no swelling, redness, or edema. ENT: Nares patent. No nasal discharge, no septal abnormalities noted. External auditory canals are clear. Oropharynx with no redness, swelling, or masses, exudates, or evidence of obstruction, uvula midline. Mucous membranes moist. Neck: Trachea midline, no thyromegaly or masses palpated, and no cervical lymphadenopathy. Supple, full range of motion without nuchal rigidity, or vertebral point tenderness. No Meningismus. Chest/axilla: Normal chest wall appearance and motion. Nontender with no deformity. No lesions are appreciated. Cardiovascular: Regular rate and rhythm with a normal S1 and S2. No gallops, murmurs, or rubs. Normal PMI, no JVD. No pulse deficits. Respiratory: Lungs have equal breath sounds bilaterally, clear to auscultation and percussion. No rales, rhonchi or wheezes noted. No increased work of breathing, no retractions or nasal flaring. Abdomen/GI: Soft, non-tender, with normal bowel sounds. No distension or tympany. No guarding or rebound. No evidence of tenderness throughout. Back: No spinal tenderness. No costovertebral tenderness. Full range of motion. Skin: Warm, dry with normal turgor. Normal color with no rashes, no lesions, and no evidence of cellulitis. MS/ Extremity: Pulses equal, no cyanosis. Neurovascular intact. Full, normal range of motion. Psych: Awake, alert, with orientation to person, place and time. Behavior, mood, and affect are within normal limits. 12:48 ECG was reviewed by the Attending Physician. EKG demonstrates normal sinus rhythm at 68 bpm with normal intervals, normal axis, nonspecific diffuse ST/T changes and Q waves in lead III. Patient had recent NSTEMI last week. 12:48 Neuro: Neurological exam is completely normal other than episodic aphasia which seems to be cycling every few minutes., Vital Signs: 11:02 BP 127 / 93; Pulse 76; Resp 18 S; Temp 98(TE); Pulse Ox 97% on R/A; Weight 84.82 kg as6 (R); Height 5 ft. 5 in. (R); Pain 0/10; 11:54 BP 110 / 79; Pulse 67; Resp 18; Pulse Ox 100% on R/A; ld1 13:00 BP 106 / 72; Pulse 69; Resp 18; Pulse Ox 98% on R/A; ld1 14:15 BP 110 / 74; Pulse 76; Resp 18; Pulse Ox 98% ; ld1 15:10 BP 103 / 71; Pulse 70; Resp 18; Pulse Ox 98% on R/A; ld1 16:04 BP 117 / 76; Pulse 71; Resp 18; Pulse Ox 98% on R/A; ld1 11:02 Body Mass Index 31.12 (84.82 kg, 165.1 cm) as6 11:02 Pain Scale: Adult as6 NIH Stroke Scale Scores: 14:34 NIHSS Score: 3 ld1 16:05 NIHSS Score: 3 ld1 MDM: 11:04 Patient medically screened. sp3 12:49 Data reviewed: vital signs, nurses notes, old medical records, lab test result(s), EKG, sp3 radiologic studies. ED course: 58-year-old male with episodic aphasia for [address] scan and labs were initiated from the waiting room and patient was able to speak during triage evaluation. CT demonstrates subacute 14 mm area of ischemia in the right internal capsule. Subsequent CTA demonstrates multiple levels of left carotid artery occlusion with probable plaques including the carotid bulb to the distal artery. Remainder of laboratory values are all within normal limits including troponin. I discussed the case with Dr. Bradley our neurologist who recommended no intervention here in the ED and transferred to [facility] for further evaluation, MRI and possible intra-arterial intervention.. 13:02 ED course: [facility] declined transfer secondary to saturation. [facility] system pending next. NIH score rated at a 3.. 13:32 ED course: Discussed with Dr. Gage at [facility] who was able to except patient. sp3 He suggested restarting aspirin and Plavix and does not think that the occlusions are acute given the symptomology. Will keep his head above 30 degrees and hydrate with 1 L normal saline bolus and subsequent 125 mL an hour. Transfer will be via ground transportation.. 07/24 11:26 Order name: Basic Metabolic Panel; Complete Time: 12:35 07/24 11:26 Order name: CBC with Diff; Complete Time: 12:35 07/24 11:26 Order name: High Sensitivity Troponin; Complete Time: 12:35 07/24 11:26 Order name: Protime (+inr); Complete Time: 12:35 07/24 11:26 Order name: Ptt, Activated; Complete Time: 12:35 07/24 11:26 Order name: CT Stroke Brain w/o Contrast; Complete Time: 11:58 07/24 11:26 Order name: Stroke CXR 1 View; Complete Time: 12:35 07/24 11:41 Order name: CT Head Angio; Complete Time: 12:49 07/24 11:41 Order name: CT Neck Angio; Complete Time: 12:49 07/24 11:26 Order name: EKG; Complete Time: 11:27 07/24 11:26 Order name: Cardiac monitoring; Complete Time: 11:53 07/24 11:26 Order name: EKG - Nurse/Tech; Complete Time: 11:53 07/24 11:26 Order name: IV Saline Lock; Complete Time: 11:53 07/24 11:26 Order name: Labs collected and sent; Complete Time: 11:53 07/24 11:26 Order name: NPO; Complete Time: 11:40 07/24 11:26 Order name: O2 Per Protocol; Complete Time: 11:40 07/24 11:26 Order name: O2 Sat Monitoring; Complete Time: 11:40 07/24 11:26 Order name: Stroke Swallow Screen; Complete Time: 11:53 Administered Medications: 14:17 Drug: Aspirin PO 325 mg PO once Route: PO; ld1 14:17 Drug: Clopidogrel PO 75 mg PO once Route: PO; ld1 14:17 Drug: NS 0.9% IV 1000 ml IV at 1 bolus Per protocol; 1000 mL bolus Route: IV; Rate: 1 ld1 bolus; Site: right antecubital; 16:04 Drug: NS 0.9% IV 1000 ml IV at 125 ml/hr continuous Route: IV; Rate: 125 ml/hr; Site: ld1 right antecubital; Point of Care Testing: Blood Glucose: 16:07 Blood Glucose: 328 mg/dL; ld1 Ranges: Critical Glucose Levels:Adult <50 mg/dl or >400 mg/dl <40 mg/dl or >180 mg/dl Disposition Summary: 07/24/23 13:14 Transfer Ordered Notes: Reason: Higher level of care sp3 Condition: Stable sp3 Problem: new sp3 Symptoms: have worsened sp3 Transfer Location: [facility](07/24/23 13:33) sp3 Accepting Physician: ASA(07/24/23 16:09) ld1 Diagnosis - Subacute infarct right internal capsule, 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 Dysarthria (speech clarity - read or repeat words) - 1(Mild to Moderate) 11. Extinction and Inattention (visual/tactile/auditory/spatial/personal) - 0(No abnormality) 1a. Level of Consciousness (LOC) - 0(Alert) 1b. Level of Consciousness (LOC) (Month \\T\\ Age) - 0(Both) 1c. LOC Commands (Open \\T\\ Closes Eyes/Security Systems Manager) - 0(Both) 2. Best Gaze (Lateral Gaze Paresis) - 0(Normal) 3. Visual Field Loss - 0(No visual loss) 4. Facial Palsy - 1(Minor Paralysis) 5a. Left Arm: Motor (10-second hold) - 0(No drift) 5b. Right Arm: Motor (10-second hold) - 0(No drift) 6a. Left Leg: Motor (5-second hold - always test supine) - 0(No drift) 6b. Right Leg: Motor (5-second hold - always test supine) - 0(No drift) 7. Limb Ataxia (finger/nose \\T\\ heel/goldsmith - test with eyes open) - 0(Absent) 8. Sensory Loss (pinprick arms/legs/face) - 0(Normal) 9. Best Language: Aphasia (description/naming/reading) - 1(Mild to moderate aphasia) Initials: ld1 NIH Stroke Scale - NIH Stroke Score Date: 07/24/2023 Time: 16:05 Total Score = 3 10. Dysarthria (speech clarity - read or repeat words) - 1(Mild to Moderate) 11. Extinction and Inattention (visual/tactile/auditory/spatial/personal) - 0(No abnormality) 1a. Level of Consciousness (LOC) - 0(Alert) 1b. Level of Consciousness (LOC) (Month \\T\\ Age) - 0(Both) 1c. LOC Commands (Open \\T\\ Closes Eyes/Security Systems Manager) - 0(Both) 2. Best Gaze (Lateral Gaze Paresis) - 0(Normal) 3. Visual Field Loss - 0(No visual loss) 4. Facial Palsy - 1(Minor Paralysis) 5a. Left Arm: Motor (10-second hold) - 0(No drift) 5b. Right Arm: Motor (10-second hold) - 0(No drift) 6a. Left Leg: Motor (5-second hold - always test supine) - 0(No drift) 6b. Right Leg: Motor (5-second hold - always test supine) - 0(No drift) 7. Limb Ataxia (finger/nose \\T\\ heel/goldsmith - test with eyes open) - 0(Absent) 8. Sensory Loss (pinprick arms/legs/face) - 0(Normal) 9. Best Language: Aphasia (description/naming/reading) - 1(Mild to moderate aphasia) Initials: ld1 Signatures: Dispatcher [employer] EDMS Sheila Bartholomew RN RN ld1 Theo Durán MD MD sp3 Elmer Lucero RN RN as6 Corrections: (The following items were deleted from the chart) 13:14 12:49 ED course: 58-year-old male with episodic aphasia for [address] scan and labs were initiated from the waiting room and patient was able to speak during triage evaluation. CT demonstrates subacute 14 mm area of ischemia in the left internal capsule. Subsequent CTA demonstrates distal left carotid artery occlusion with probable plaques. Remainder of laboratory values are all within normal limits including troponin. I discussed the case with Dr. Bradley our neurologist who recommended no intervention here in the ED and transferred to [facility] for further evaluation, MRI and possible intra-arterial intervention.. sp3 13:33 13:14 D sp3 sp3 13:33 13:[address] [facility] sp3 sp3 16:09 13:33 TBD sp3 ld1
--- NOTE | 2023-07-24 13:15 | ER ---
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 pt talking at time of triage. no neuro deficits noted at this time. Coronavirus screen: At this time, the client does not indicate any symptoms associated with coronavirus-19. Ebola Screen: No symptoms or risks identified at this time. Initial Sepsis Screen: Does the patient meet any 2 criteria? No. Patient's initial sepsis screen is negative. Does the patient have a suspected source of infection? No. Patient's initial sepsis screen is negative. Risk Assessment: Do you want to hurt yourself or someone else? Patient reports no desire to harm self or others. Onset of symptoms was July 21, 2023. 11:02 Method Of Arrival: Ambulatory as6 11:02 Acuity: CRYSTAL 3 as6 16:06 No acute neurological deficit is noted. The patients blood glucose was checked before ld1 arriving to the hospital and was found to be normal. Triage Assessment: 11:06 General: Appears in no apparent distress. Behavior is calm, cooperative. Pain: Denies as6 pain. 16:07 The onset of the patients symptoms was The onset of the patients symptoms was June at 13:00. 16:08 Neuro: Reports diifficulty speaking. ld1 Historical: - Allergies: 11:05 No Known Allergies; as6 - PMHx: 11:05 Hypertensive disorder; Myocardial infarction; as6 - PSHx: 11:05 heart stent; as6 - Immunization history:: Adult Immunizations up to date. - Social history:: Smoking status: Patient reports the use of cigarette tobacco products. Screenin:53 [facility] ED Fall Risk Assessment (Adult) History of falling in the last 3 months, ld1 including since admission. Abuse screen: Denies threats or abuse. Denies injuries from another. Nutritional screening: No deficits noted. Tuberculosis screening: No symptoms or risk factors identified. Danelle Swallow Protocol Brief Cognitive Screen What is your name? Normal, Where are you right now? Normal, What year is it? Normal. Oral Mechanism Examination Facial Symmetry: Normal, Motion: Normal, Lip Closure: Normal, 3 oz Water Swallow Challenge: Pt able to drink all water without stopping, coughing, choking or throat clearing: Yes Result: PASS. 12:45 VAN Screening: Visual Disturbance: No visual disturbance noted. Aphasia: Expressive es3 aphasia noted. Provider notified of +VAN scoring. Assessment: 11:40 Reassessment: Pt back from CT. ld1 11:54 General: Appears in no apparent distress. comfortable, Behavior is calm, cooperative, ld1 appropriate for age. Pain: Denies pain. Neuro: Level of Consciousness is awake, alert, obeys commands, Oriented to person, place, time, situation, Appropriate for age Speech is normal, Facial symmetry appears normal. Cardiovascular: Capillary refill < 3 seconds Patient's skin is warm and dry. Respiratory: Airway is patent Respiratory effort is even, unlabored. GI: Abdomen is round non-distended. : No signs and/or symptoms were reported regarding the genitourinary system. EENT: No signs and/or symptoms were reported regarding the EENT system. Derm: No signs and/or symptoms reported regarding the dermatologic system. Musculoskeletal: No signs and/or symptoms reported regarding the musculoskeletal system. 12:30 Reassessment: Patient appears in no apparent distress at this time. No changes from ld1 previously documented assessment. Patient and/or family updated on plan of care and expected duration. Pain level reassessed. 14:00 Reassessment: No changes from previously documented assessment. Patient and/or family ld1 updated on plan of care and expected duration. Pain level reassessed. Patient denies pain at this time. 15:30 Reassessment: No changes from previously documented assessment. Patient and/or family ld1 updated on plan of care and expected duration. Pain level reassessed. Patient denies pain at this time. Patient states symptoms have not improved. 16:07 VAN Scoring: Arm Drift: Patients demonstrates NO arm weakness. Patient is VAN Negative. ld1 TNKase (Tenecteplase) Screening: Indications: Treatment will start within 4.5 hours onset of symptoms: No. Vital Signs: 11:02 BP 127 / 93; Pulse 76; Resp 18 S; Temp 98(TE); Pulse Ox 97% on R/A; Weight 84.82 kg as6 (R); Height 5 ft. 5 in. (R); Pain 0/10; 11:54 BP 110 / 79; Pulse 67; Resp 18; Pulse Ox 100% on R/A; ld1 13:00 BP 106 / 72; Pulse 69; Resp 18; Pulse Ox 98% on R/A; ld1 14:15 BP 110 / 74; Pulse 76; Resp 18; Pulse Ox 98% ; ld1 15:10 BP 103 / 71; Pulse 70; Resp 18; Pulse Ox 98% on R/A; ld1 16:04 BP 117 / 76; Pulse 71; Resp 18; Pulse Ox 98% on R/A; ld1 11:02 Body Mass Index 31.12 (84.82 kg, 165.1 cm) as6 11:02 Pain Scale: Adult as6 NIH Stroke Scale Scores: 14:34 NIHSS Score: 3 ld1 16:05 NIHSS Score: 3 ld1 ED Course: 10:55 Patient arrived in ED. im 11:01 Arm band placed on. as6 11:03 Theo Durán MD is Attending Physician. sp3 11:05 Triage completed. as6 11:36 CT Stroke Brain w/o Contrast In Process Unspecified. EDMS 11:40 Sheila Bartholomew, SOFÍA is Primary Nurse. ld1 11:48 Inserted saline lock: 20 gauge in right antecubital area, using aseptic technique. iw Blood collected. 11:54 Patient has correct armband on for positive identification. Placed in gown. Bed in low ld1 position. Call light in reach. Side rails up X2. patient monitor on. Pulse ox on. NIBP on. Door closed. Noise minimized. Warm blanket given. 11:54 No provider procedures requiring assistance completed. ld1 12:18 Stroke CXR 1 View In Process Unspecified. EDMS 12:25 CT Head Angio In Process Unspecified. EDMS 12:25 CT Neck Angio In Process Unspecified. EDMS 12:46 Transfer initiated at this time with [facility] for subacute stroke. Per HAL ross page neuro cm10 and call back. 12:56 pt denied at [facility] due to no capacity,per HAL Edwards. bd 13:41 initiated transfer to [facility]. bd 14:54 pt accepted in transfer to [facility] by dr Hitchcock,admin approval given by sunshine cody. 16:06 Patient transferred, IV remains in place. ld1 16:08 Provided Education on: Stroke S/S. ld1 Administered Medications: 14:17 Drug: Aspirin PO 325 mg PO once Route: PO; ld1 14:17 Drug: Clopidogrel PO 75 mg PO once Route: PO; ld1 14:17 Drug: NS 0.9% IV 1000 ml IV at 1 bolus Per protocol; 1000 mL bolus Route: IV; Rate: 1 ld1 bolus; Site: right antecubital; 16:04 Drug: NS 0.9% IV 1000 ml IV at 125 ml/hr continuous Route: IV; Rate: 125 ml/hr; Site: ld1 right antecubital; Medication: 11:54 VIS not applicable for this client. ld1 Point of Care Testing: Blood Glucose: 16:07 Blood Glucose: 328 mg/dL; ld1 Ranges: Outcome: 13:14 ER care complete, transfer ordered by MD. sheridan 16:06 Transferred by ground EMS ld1 16:06 Condition: unchanged 16:06 Instructed on the need for transfer, 16:09 Patient left the ED. ld1 NIH Stroke Scale - NIH Stroke Score Date: 07/24/2023 Time: 14:34 Total Score = 3 10. Dysarthria (speech clarity - read or repeat words) - 1(Mild to Moderate) 11. Extinction and Inattention (visual/tactile/auditory/spatial/personal) - 0(No abnormality) 1a. Level of Consciousness (LOC) - 0(Alert) 1b. Level of Consciousness (LOC) (Month \\T\\ Age) - 0(Both) 1c. LOC Commands (Open \\T\\ Closes Eyes/Collet Making Machine Operator) - 0(Both) 2. Best Gaze (Lateral Gaze Paresis) - 0(Normal) 3. Visual Field Loss - 0(No visual loss) 4. Facial Palsy - 1(Minor Paralysis) 5a. Left Arm: Motor (10-second hold) - 0(No drift) 5b. Right Arm: Motor (10-second hold) - 0(No drift) 6a. Left Leg: Motor (5-second hold - always test supine) - 0(No drift) 6b. Right Leg: Motor (5-second hold - always test supine) - 0(No drift) 7. Limb Ataxia (finger/nose \\T\\ heel/goldsmith - test with eyes open) - 0(Absent) 8. Sensory Loss (pinprick arms/legs/face) - 0(Normal) 9. Best Language: Aphasia (description/naming/reading) - 1(Mild to moderate aphasia) Initials: ld1 NIH Stroke Scale - NIH Stroke Score Date: 07/24/2023 Time: 16:05 Total Score = 3 10. Dysarthria (speech clarity - read or repeat words) - 1(Mild to Moderate) 11. Extinction and Inattention (visual/tactile/auditory/spatial/personal) - 0(No abnormality) 1a. Level of Consciousness (LOC) - 0(Alert) 1b. Level of Consciousness (LOC) (Month \\T\\ Age) - 0(Both) 1c. LOC Commands (Open \\T\\ Closes Eyes/Collet Making Machine Operator) - 0(Both) 2. Best Gaze (Lateral Gaze Paresis) - 0(Normal) 3. Visual Field Loss - 0(No visual loss) 4. Facial Palsy - 1(Minor Paralysis) 5a. Left Arm: Motor (10-second hold) - 0(No drift) 5b. Right Arm: Motor (10-second hold) - 0(No drift) 6a. Left Leg: Motor (5-second hold - always test supine) - 0(No drift) 6b. Right Leg: Motor (5-second hold - always test supine) - 0(No drift) 7. Limb Ataxia (finger/nose \\T\\ heel/goldsmith - test with eyes open) - 0(Absent) 8. Sensory Loss (pinprick arms/legs/face) - 0(Normal) 9. Best Language: Aphasia (description/naming/reading) - 1(Mild to moderate aphasia) Initials: ld1 Signatures: Dispatcher [employer] EDMS Kelsea Aj Irene, RN RN iw Sims, Lauren, RN RN ld1 Theo Durán MD MD sp3 Elmer Lucero RN RN as6 Rae Loya Clarissa, RN RN cm10 Blaire Gaytan RN RN es3 Corrections: (The following items were deleted from the chart) 12:55 12:52 VAN Screening: Visual Disturbance: No visual disturbance noted. Aphasia: es3 Expressive aphasia noted. Provider notified of +VAN scoring. es3 14:35 12:53 NIHSS Score: 3 es3 ld1 14:35 12:45 NIHSS Score: 3 es3 ld1
[2023-07-24 16:33] VITALS: BP 117/76; TEMP 98; O2SAT 98
== END ==
LOC: ER 10:52
DX: I63.231 Cerebral infarction due to unspecified occlusion or stenosis of right carotid arteries (principal); I63.531 Cerebral infarction due to unspecified occlusion or stenosis of right posterior cerebral artery; R29.703 NIHSS score 3; I10 Essential (primary) hypertension; I25.2 Old myocardial infarction; F17.210 Nicotine dependence, cigarettes, uncomplicated; Z95.818 Presence of other cardiac implants and grafts
CPT/HCPCS: 93005; 85025; 80048; 36415; 85610; 85730; 84484; 70496; 70498; 70450; 71045; Q9967; J7030

== ENCOUNTER 2023-10-30 07:44 | Day surgery (SDC) | payer OTHER ==
[2023-10-29 11:51] LABS: Absolute Eosinophils 0.3 K/uL (0-0.5); Absolute Lymphocytes (CBC) 1.4 K/uL (0.7-4.9); Absolute Monocytes 0.5 K/uL (0.1-1.3); Absolute Neutrophil 4.1 K/uL (1.8-8.0); Basophils % 0.8 % (0-1.3); Eosinophils % 4.2 % (0-4.4); Hemoglobin 17.4 g/dL (13.6-17.9); Lymphocytes % 22.7 % (15.3-44.8); MCH 31.3 pg (27.0-35.0); MCHC 33.3 g/dL (32.0-36.0); MCV 93.9 fL (80-100); MPV 9.2 fL (7.6-11.3); Monocytes % 7.5 % (3.3-12.3); Neutrophils % 64.8 % (41.7-73.7); Platelets 182 thou/uL (152-406); RBC Red Blood Cell Count 5.54 M/uL (4.33-5.43); Red Cell Distribution Width 13.4 % (12.1-15.2)
[2023-10-29 12:08] LABS: PT Prothrombin Time 11.5 SECONDS (9.5-12.5); PTT, Activated Partial Thromb 30.6 SECONDS (24.3-36.9); Protime INR 1.05
[2023-10-30] MEDS ORDERED: NA CHLORIDE 0.9% 500 ML ONE (08:12)
[2023-10-30] MEDS ORDERED: HEPA 1000U/500MLS 2,000 UNIT/1,000 ML BAG IV ONE (08:50)
[2023-10-30] MEDS ORDERED: LIDOCAINE 1% 20 ML MDV ONE (08:50)
[2023-10-30] MEDS ORDERED: FENTANYL CITR 100 MCG/2 ML ONE (08:50)
[2023-10-30] MEDS ORDERED: MIDAZOLAM HCL 2 MG/2 ML INJ ONE (08:51)
[2023-10-30] MEDS ORDERED: CLOPIDOGREL 75 MG TABLET ONE (08:51)
[2023-10-30] MEDS ORDERED: ATROPINE SULF 1 MG/10 ML SYR IV ONE (08:51)
[2023-10-30] MEDS ORDERED: HEPARIN 10,000 UNIT/10 ML VIAL IV ONE (08:51)
[2023-10-30] MEDS ORDERED: HEPARIN 5000 UNIT/ML 1 ML VIAL ONE (08:51)
[2023-10-30] MEDS ORDERED: TICAGRELOR 90 MG TABLET PO ONE (08:51)
[2023-10-30] MEDS ORDERED: ASPIRIN 325 MG TAB ONE (08:52)
[2023-10-30 12:20] VITALS: BP 133/92; O2SAT 100
--- NOTE | 2023-10-30 13:07 | OP ---
Date of Procedure: 10/30/2023 Surgeon: Domo Betancourt Procedures Performed: 1.Abdominal angiogram. 2.Peripheral run-off. Indications For Procedure: Claudication, abnormal GARRISON. Physician Time: 30 minutes with 2 of Versed and 50 of fentanyl. Complications: None. Estimated Blood Loss: Less than 50 cc. Access: Right common femoral artery, closed by Angio-Seal. Description Of Procedure: After risks, benefits, and alternatives were explained to the patient, the patient agreed to proceed with procedure and signed informed consent. The patient was brought back to the nursery laborer, prepped and draped in sterile fashion. Time-out was performed. Sedation was admini stered. Right common femoral artery ultrasound-guided micropuncture technique access was obtained. Omni Flush catheter was advanced to the lower abdominal aorta. Lower abdominal angiogram was done an d peripheral runoff was done through the same catheter. At the end of the procedure, catheter was re moved. The sheath was removed. Angio-Seal was applied and hemostasis was achieved. The patient was wheeled back to recovery in stable condition. Findings: 1.Lower abdominal aorta is patent. 2.Right external iliac artery/common femoral artery/superficial femoral artery/popliteal arteries ar e patent. 3.Right anterior tibial is patent. 4.Right peroneal is patent. 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 6.Left external iliac artery/common femoral artery/superficial femoral artery/popliteal arteries are patent. 7.Left anterior tibial proximal 70% disease. 8.Left posterior tibial proximal 80% disease. 9.Left peroneal is patent. Assessment And Plan: 1.Significant bilateral below-knee disease with 2-vessel runoff on the right side and 3-vessel runof f on the left side. The plan will be to continue aggressive medical management. Start the patient o n cilostazol 50 b.i.d. and continue aggressive exercise. If the patient is not responsive, then we w ill plan for below-knee intervention. 2.Also the patient needs to be worked up for lower abdominal bleeding by GI first as he needs to be able to tolerate aspirin and Plavix. MANRIQUEZ/MODL Voice ID: [id number] Report ID: [id number]
--- NOTE | 2023-10-30 13:22 | EKG ---
Test Date: 2023-10-29 Test Time: 11:47:37 Brick Mason: ELYSIA MEASUREMENT RESULTS: Intervals: Rate: 70 SD: 152 QRSD: 86 QT: 404 QTc: 436 [place]: P: 71 SD: 152 QRS: 72 T: 82 INTERPRETIVE STATEMENTS: Normal sinus rhythm Possible Left atrial enlargement Inferior infarct, age undetermined Cannot rule out Anteroseptal infarct, age undetermined T wave abnormality, consider lateral ischemia Abnormal ECG Compared to ECG 07/24/2023 11:33:39 T-wave abnormality now present ST (T wave) deviation no longer present Myocardial infarct finding still present Possible ischemia still present Electronically Signed On 10-30-23 13:19:30 CDT by Florian Mosley
== END 2023-10-30 12:54 | disposition home or self-care (01) ==
LOC: CCL 07:44
PROVIDERS: ATTEND Internal Medicine Interventional Cardiology
DX: I70.223 Atherosclerosis of native arteries of extremities with rest pain, bilateral legs (principal); I25.10 Atherosclerotic heart disease of native coronary artery without angina pectoris; I11.0 Hypertensive heart disease with heart failure; I50.22 Chronic systolic (congestive) heart failure; E11.9 Type 2 diabetes mellitus without complications; E78.2 Mixed hyperlipidemia; Z95.1 Presence of aortocoronary bypass graft; Z87.891 Personal history of nicotine dependence; Z79.84 Long term (current) use of oral hypoglycemic drugs; Z79.899 Other long term (current) drug therapy
CPT/HCPCS: 36200; 36415; 75630; 76937; 80048; 82947; 85025; 85610; 85730; 93005; 99152; 99153; C1760; C1893; J0461; J1644; J2001; J2250; J3010; J7040